=== PATIENT | female | born 1960 | race Caucasian/White ===

== ENCOUNTER 2016-11-02 20:24 | Emergency (ER) | payer MEDICARE, MEDICAID ==
[2016-11-02 20:36] VITALS: BP 132/67
--- NOTE | 2016-11-02 20:37 | ER Document Report ---
ED Medical Screen (RME) - General Stated Complaint: FALL,LEFT KNEE PAIN Notes: mechanical fall from standing, landing on her knee and then her head. Denies LOC , vomiting, confusion, AMS. admits to headache. able to walk but pain in her left lateral knee. states she cannot bend her knee I have greeted and performed a rapid initial assessment of this patient. A comprehensive ED assessment and evaluation of the patient, analysis of test results and completion of the medical decision making process will be conducted by additional ED providers. TRAVEL OUTSIDE OF THE [place] IN LAST 30 DAYS: No - Related Data Allergies/Adverse Reactions: metoclopramide HCl [From Reglan] Adverse Reaction (Intermediate, Verified 20:37) "FEELS LIKE NO CONTROL OVER BODY-LEGS/HANDS/SPEECH" Penicillins Adverse Reaction (Intermediate, Verified 11/02/16 20:37) NAUSEA/VOMITING prochlorperazine edisylate [From Compazine] Adverse Reaction (Intermediate, Verified 11/02/16 20:37) DIZZINESS,AGITATED,RESTLESS sumatriptan [From Imitrex] Adverse Reaction (Verified 11/02/16 20:37) NAUSEA, VOMITING, DIZZY ivp dye Allergy (Severe, Uncoded 08/24/15 10:16) THROAT SWELLING, DIFFICULTY BREATHING Past Medical History - Past Medical History Cardiac Medical History: Denies: Hx Atrial Fibrillation, Hx Congestive Heart Failure, Hx Coronary Artery Disease, Hx Heart Attack, Hx Hypercholesterolemia, Hx Hypertension - HTN in chart but PT states "NO HTN", Hx Peripheral Vascular Disease, Hx Pulmonary Embolism, Hx Heart Murmur Pulmonary Medical History: Reports: Hx Asthma, Hx Bronchitis - 07/31, Hx Pneumonia - x3 IN 2014 Denies: Hx COPD, Hx Respiratory Failure, Hx Sleep Apnea, Hx Tuberculosis Neurological Medical History: Denies: Hx Cerebrovascular Accident, Hx Seizures Endocrine Medical History: Reports: Hx Diabetes Mellitus Type 1, Hx Hypothyroidism - Right Thyroidectomy/CA/Goiter. Denies: Hx Graves' Disease, Hx Hyperthyroidism Renal/ Medical History: Denies: Hx End Stage Renal Disease, Hx Kidney Stones, Hx Ovarian Cysts, Hx Peritoneal Dialysis, Hx Pelvic Inflammatory Disease Malignancy Medical History: Denies: Hx Breast Cancer, Hx Cervical Cancer, Hx Lung Cancer, Hx Ovarian Cancer GI Medical History: Reports: Hx Gastroesophageal Reflux Disease - 7 yrs? takes meds, Hx Irritable Bowel. Denies: Hx Crohn's Disease, Hx Hiatal Hernia, Hx Liver Failure, Hx Ulcer Musculoskeltal Medical History: Reports Hx Arthritis, Reports Hx Fibromyalgia, Denies Hx Multiple Sclerosis, Denies Hx Muscular Dystrophy, Reports Hx Musculoskeletal Deformity, Reports Hx Musculoskeletal Trauma Psychiatric Medical History: Reports: Hx Depression - Anxiety, Hx Post Traumatic Stress Disorder Denies: Hx Bipolar Disorder, Hx Dementia, Hx Schizophrenia Traumatic Medical History: Reports: Hx Fractures - multiple- hip, ankles, left wrist Infectious Medical History: Past Surgical History: Reports: Hx Adenoidectomy, Hx Section - x2, Hx Cholecystectomy, Hx Nose Surgery, Hx Orthopedic Surgery, Hx Thyroid Surgery, Hx Tonsillectomy, Hx Tubal Ligation. Denies: Hx Appendectomy, Hx Bowel Surgery, Hx Colostomy, Hx Coronary Artery Bypass Graft, Hx Gastric Bypass Surgery, Hx Herniorrhaphy, Hx Hysterectomy, Hx Mastectomy, Hx Pacemaker - Immunizations Hx Diphtheria, Pertussis, Tetanus Vaccination: Yes Physical Exam - Vital signs Vitals: Temp Pulse Resp BP Pulse Ox 98.4 F 71 16 132/67 H 98 11/02/16 20:35 11/02/16 20:35 11/02/16 20:35 11/02/16 20:35 11/02/16 20:35 Course - Vital Signs Vital signs: Temp Pulse Resp BP Pulse Ox 98.4 F 71 16 132/67 H 98 11/02/16 20:35 11/02/16 20:35 11/02/16 20:35 11/02/16 20:35 11/02/16 20:35
--- NOTE | 2016-11-02 23:05 | ER Document Report ---
HPI - HPI Pain Level: 5 - REPRODUCTIVE Reproductive: DENIES: : - DERM Skin Color: Normal, Ivor Past Medical History - Social History Smoking Status: Never Smoker Chew tobacco use (# tins/day): No Frequency of alcohol use: Rare Drug Abuse: None Family History: Reviewed & Not Pertinent, Other - Past Medical History Cardiac Medical History: Denies: Hx Atrial Fibrillation, Hx Congestive Heart Failure, Hx Coronary Artery Disease, Hx Heart Attack, Hx Hypercholesterolemia, Hx Hypertension - HTN in chart but PT states "NO HTN", Hx Peripheral Vascular Disease, Hx Pulmonary Embolism, Hx Heart Murmur Pulmonary Medical History: Reports: Hx Asthma, Hx Bronchitis - 07/31, Hx Pneumonia - x3 IN 2014 Denies: Hx COPD, Hx Respiratory Failure, Hx Sleep Apnea, Hx Tuberculosis Neurological Medical History: Denies: Hx Cerebrovascular Accident, Hx Seizures Endocrine Medical History: Reports: Hx Diabetes Mellitus Type 1, Hx Hypothyroidism - Right Thyroidectomy/CA/Goiter. Denies: Hx Graves' Disease, Hx Hyperthyroidism Renal/ Medical History: Denies: Hx End Stage Renal Disease, Hx Kidney Stones, Hx Ovarian Cysts, Hx Peritoneal Dialysis, Hx Pelvic Inflammatory Disease Malignancy Medical History: Denies: Hx Breast Cancer, Hx Cervical Cancer, Hx Lung Cancer, Hx Ovarian Cancer GI Medical History: Reports: Hx Gastroesophageal Reflux Disease - 7 yrs? takes meds, Hx Irritable Bowel. Denies: Hx Crohn's Disease, Hx Hiatal Hernia, Hx Liver Failure, Hx Ulcer Musculoskeltal Medical History: Reports Hx Arthritis, Reports Hx Fibromyalgia, Denies Hx Multiple Sclerosis, Denies Hx Muscular Dystrophy, Reports Hx Musculoskeletal Deformity, Reports Hx Musculoskeletal Trauma Psychiatric Medical History: Reports: Hx Depression - Anxiety, Hx Post Traumatic Stress Disorder Denies: Hx Bipolar Disorder, Hx Dementia, Hx Schizophrenia Traumatic Medical History: Reports: Hx Fractures - multiple- hip, ankles, left wrist Infectious Medical History: Past Surgical History: Reports: Hx Adenoidectomy, Hx Section - x2, Hx Cholecystectomy, Hx Nose Surgery, Hx Orthopedic Surgery, Hx Thyroid Surgery, Hx Tonsillectomy, Hx Tubal Ligation. Denies: Hx Appendectomy, Hx Bowel Surgery, Hx Colostomy, Hx Coronary Artery Bypass Graft, Hx Gastric Bypass Surgery, Hx Herniorrhaphy, Hx Hysterectomy, Hx Mastectomy, Hx Pacemaker - Immunizations Hx Diphtheria, Pertussis, Tetanus Vaccination: Yes Hx Pneumococcal Vaccination: 04/12/16 Vertical Provider Document - INFECTION CONTROL TRAVEL OUTSIDE OF THE [place] IN LAST 30 DAYS: No - RESPIRATORY O2 Sat by Pulse Oximetry: 98 Course - Re-evaluation Re-evalutation: 11/02/16 23:04 first time I went in the room, the pt was in xray, upon return and for hx and physical exam she is not in the room again. Therefore I did not see or talk with the pt. She left without being seen. - Vital Signs Vital signs: Temp Pulse Resp BP Pulse Ox 98.4 F 71 16 132/67 H 98 11/02/16 20:35 11/02/16 20:35 11/02/16 20:35 11/02/16 20:35 11/02/16 20:35 Discharge - Discharge Clinical Impression: fall, knee pain Disposition: ELOPED Additional Instructions: pt eloped after the xray was done. I went into the room while she was in xray and again and she was not in the room. pt eloped
== END 2016-11-02 22:52 | disposition left against medical advice (07) ==
LOC: ER 20:24
DX: M25.562 Pain in left knee (principal)
CPT/HCPCS: 99281

== ENCOUNTER → 2017-02-19 | Outpatient (CLI) | payer MEDICARE, MEDICAID ==
--- NOTE | 2017-02-19 15:15 | RADIOLOGY REPORT (SQ) ---
EXAM DESCRIPTION: VENOUS UNILATERAL LOWER COMPLETED DATE/TIME: 02/19/2017 2:29 pm REASON FOR STUDY: LLE I82.409 I82.409 ACUTE EMBOLISM AND THOMBOS UNSP DEEP VN UNSP LOWER E COMPARISON: 11/16/2014 TECHNIQUE: Dynamic and static ferraro scale and color images acquired of the LEFT leg venous system. Se lected spectral images acquired with additional compression and augmentation maneuvers. The contralat eral common femoral vein and saphenofemoral junction were also imaged. Images stored on PACS. LIMITATIONS: None. FINDINGS: LEFT COMMON FEMORAL: Normal phasicity, compression and augmentation. No visualized echogenic material on g ray scale. No defects on color images. FEMORAL: Normal compression and augmentation. No visualized echogenic material on ferraro scale. No defe cts on color images. POPLITEAL: Normal compression, augmentation. No visualized echogenic material on ferraro scale. No defec ts on color images. CALF VESSELS: Normal compression, augmentation. No visualized echogenic material on ferraro scale. No de fects on color images. GSV and SSV: Normal compression, augmentation. No visualized echogenic material on ferraro scale. No def ects on color images. ANY DEEP VENOUS INSUFFICIENCY: Not evaluated. ANY EVIDENCE OF POPLITEAL CYST: No. OTHER: No other significant finding. RIGHT COMMON FEMORAL VEIN AND SAPHENOFEMORAL JUNCTION: Normal phasicity, compression and augmentation. No visualized echogenic material on ferraro scale. No de fects on color images. IMPRESSION: NO EVIDENCE OF DVT OR SVT IN THE LEFT LEG. TECHNICAL DOCUMENTATION: JOB ID: [id number] [employer]- All Rights Reserved
== END ==
LOC: SP 13:04
PROVIDERS: ATTEND Family Medicine
DX: I82.409 Acute embolism and thrombosis of unspecified deep veins of unspecified lower extremity (principal)
CPT/HCPCS: 93971

== ENCOUNTER → 2017-02-27 | Outpatient (CLI) | payer MEDICARE, MEDICAID ==
--- NOTE | 2017-03-06 08:52 | RADIOLOGY REPORT (SQ) ---
EXAM DESCRIPTION: NM 3 PHASE BONE SCAN COMPLETED DATE/TIME: 02/27/2017 4:53 pm REASON FOR STUDY: PAIN IN LEFT FOOT M79.672 PAIN IN LEFT FOOT COMPARISON: Plain films of the feet dated 03/04/2017 RADIONUCLIDE AND DOSE: 21.6 millicuries Tc99m MDP. The route of agent administration: Intravenous. ADDITIONAL DRUGS AND DOSES: None. TECHNIQUE: Following injection of the radiopharmaceutical, serial blood flow images acquired. Equil ibrium blood pool images then acquired. Routine delayed images at 3 hours acquired of the areas of c linical concern with additional focused images as needed. AREA OF INTEREST: Left foot and left knee LIMITATIONS: None. FINDINGS: VASCULAR FLOW IMAGES: No asymmetry or focal areas of hyperemia. BLOOD POOL IMAGES: No asymmetry or focal areas of soft-tissue hyper-perfusion. BONES: There are multiple focal areas of increase tracer activity in both feet at the level of the an kle articulation bilaterally as well as several of the tarsal articulations in the 1st MTP joint. Th marla areas correlate with degenerative changes on the basis of the plain films. Additional images of the left knee were obtained demonstrating a photopenic area in the left knee with surrounding areas o f increased tracer activity. Plain films demonstrate a total left knee replacement and the possibili ty of loosening should be considered. No other significant bony abnormalities were identified on the plain radiographs. OTHER: No other significant finding. IMPRESSION: Findings consistent with degenerative changes involving both feet as noted above. There is increased activity surrounding a a total left knee replacement and the possibility of loosening s hould be considered. COMMENT: PQRS 3570F: Current bone scan is compared with any available plain radiographs, prior bone scans, and CT/MRI. TECHNICAL DOCUMENTATION: JOB ID: [id number] [employer]- All Rights Reserved
== END ==
LOC: RAD 11:33
PROVIDERS: ATTEND Family Medicine
DX: M79.672 Pain in left foot (principal)
CPT/HCPCS: 78315; A9561; Q9969

== ENCOUNTER → 2017-03-04 | Outpatient (CLI) | payer MEDICARE, MEDICAID ==
--- NOTE | 2017-03-04 19:23 | RADIOLOGY REPORT (SQ) ---
EXAM DESCRIPTION: FOOT BILATERAL 3 VIEWS COMPLETED DATE/TIME: 03/04/2017 3:25 pm REASON FOR STUDY: PAIN IN LEFT FOOT COMPARISON: None. NUMBER OF VIEWS: Three views. TECHNIQUE: AP, lateral and oblique radiographic images acquired of the right and left foot. LIMITATIONS: None. FINDINGS: MINERALIZATION: Osteopenia. BONES: No acute fracture or dislocation. No worrisome bone lesions. Scattered degenerative disease noted in the fore combine to, and midfoot. Small plantar enthesophyte noted bilaterally. JOINTS: No effusions. SOFT TISSUES: No soft tissue swelling. No foreign body. OTHER: No other significant finding. IMPRESSION: Degenerative changes noted throughout both feet. No acute fracture dislocation identifi ed. Osteopenia. Small plantar enthesophytes. TECHNICAL DOCUMENTATION: JOB ID: [id number] [employer] - [employer]- All Rights Reserved
== END ==
LOC: RAD 15:05
PROVIDERS: ATTEND Family Medicine
DX: M79.672 Pain in left foot (principal)

== ENCOUNTER → 2017-03-27 | Outpatient (CLI) | payer MEDICARE, MEDICAID ==
--- NOTE | 2017-03-27 16:11 | RADIOLOGY REPORT (SQ) ---
EXAM DESCRIPTION: CT LT LOWER EXTREMITY WITHOUT COMPLETED DATE/TIME: 03/27/2017 2:55 pm REASON FOR STUDY: PAIN IN LEFT KNEE (M25.562) M25.562 PAIN IN LEFT KNEE COMPARISON: Radiograph 11/02/2016 TECHNIQUE: CT scan of the left knee performed without intravenous or oral contrast. Images reviewed with soft tissue and bone windows. Reconstructed coronal and sagittal MPR images reviewed. All anatoly ges stored on PACS. All CT scanners at this facility use dose modulation, iterative reconstruction, and/or weight based d osing when appropriate to reduce radiation dose to as low as reasonably achievable (ALARA). [facility]: Dose Right [facility]: CareDose [facility]: Dose Right [facility]: Teradose 4D [facility]: [employer] RADIATION DOSE: Up-to-date CT equipment and radiation dose reduction techniques were employed. CTDIv ol: 4.8 mGy. DLP: 154 mGy-cm. mGy. LIMITATIONS: Beam hardening artifact from metal prosthesis. FINDINGS: BONES: A total knee arthroplasty is present. There is no evidence of loosening or infecti on. No femoral or tibial fracture is seen. SOFT TISSUES: No joint effusion is seen. Soft tissues above and below the knee appear normal. OTHER: No other significant finding. IMPRESSION: Left knee arthroplasty with no evidence of loosening or infection, and no evidence of fr acture. Study is limited by artifact from the prosthesis. TECHNICAL DOCUMENTATION: JOB ID: [id number] Quality ID # [id number]: Final reports with documentation of one or more dose reduction techniques (e.g., Au tomated exposure control, adjustment of the mA and/or kV according to patient size, use of iterative reconstruction technique) 2010 [employer]- All Rights Reserved
== END ==
LOC: RAD 14:16
PROVIDERS: ATTEND Family Medicine
DX: M25.562 Pain in left knee (principal)

== ENCOUNTER 2017-04-15 17:00 | Emergency (ER) | payer MEDICARE, MEDICAID ==
--- NOTE | 2017-04-15 18:36 | ER Document Report ---
ED Medical Screen (RME) - General Chief Complaint: Abdominal Pain Stated Complaint: ABDOMINAL PAIN Time Seen by Provider: 04/15/17 18:35 Notes: Patient reports severe epigastric and bilateral upper quadrant pain. She does have a history of gastroparesis. She states she has had some dry heaving and has been unable to tolerate food. TRAVEL OUTSIDE OF THE [place] IN LAST 30 DAYS: No - Related Data Allergies/Adverse Reactions: metoclopramide HCl [From Reglan] Adverse Reaction (Intermediate, Verified 17:40) "FEELS LIKE NO CONTROL OVER BODY-LEGS/HANDS/SPEECH" Penicillins Adverse Reaction (Intermediate, Verified 04/15/17 17:40) NAUSEA/VOMITING prochlorperazine edisylate [From Compazine] Adverse Reaction (Intermediate, Verified 04/15/17 17:40) DIZZINESS,AGITATED,RESTLESS sumatriptan [From Imitrex] Adverse Reaction (Verified 04/15/17 17:40) NAUSEA, VOMITING, DIZZY ivp dye Allergy (Severe, Uncoded 04/15/17 17:40) THROAT SWELLING, DIFFICULTY BREATHING Past Medical History - Past Medical History Cardiac Medical History: Denies: Hx Atrial Fibrillation, Hx Congestive Heart Failure, Hx Coronary Artery Disease, Hx Heart Attack, Hx Hypercholesterolemia, Hx Peripheral Vascular Disease, Hx Pulmonary Embolism, Hx Heart Murmur Comment Only: Hx Hypertension - HTN in chart but PT states "NO HTN" Pulmonary Medical History: Reports: Hx Asthma, Hx Bronchitis - 07/31, Hx Pneumonia - x3 IN 2015 Denies: Hx COPD, Hx Respiratory Failure, Hx Sleep Apnea, Hx Tuberculosis Neurological Medical History: Denies: Hx Cerebrovascular Accident, Hx Seizures Endocrine Medical History: Reports: Hx Diabetes Mellitus Type 1, Hx Hypothyroidism - Right Thyroidectomy/CA/Goiter. Denies: Hx Graves' Disease, Hx Hyperthyroidism Renal/ Medical History: Denies: Hx End Stage Renal Disease, Hx Kidney Stones, Hx Ovarian Cysts, Hx Peritoneal Dialysis, Hx Pelvic Inflammatory Disease Malignancy Medical History: Denies: Hx Breast Cancer, Hx Cervical Cancer, Hx Lung Cancer, Hx Ovarian Cancer GI Medical History: Reports: Hx Gastroesophageal Reflux Disease - 7 yrs? takes meds, Hx Irritable Bowel. Denies: Hx Crohn's Disease, Hx Hiatal Hernia, Hx Liver Failure, Hx Ulcer Musculoskeltal Medical History: Reports Hx Arthritis, Reports Hx Fibromyalgia, Denies Hx Multiple Sclerosis, Denies Hx Muscular Dystrophy, Reports Hx Musculoskeletal Deformity, Reports Hx Musculoskeletal Trauma Psychiatric Medical History: Reports: Hx Depression - Anxiety, Hx Post Traumatic Stress Disorder Denies: Hx Bipolar Disorder, Hx Dementia, Hx Schizophrenia Traumatic Medical History: Reports: Hx Fractures - multiple- hip, ankles, left wrist Infectious Medical History: Past Surgical History: Reports: Hx Adenoidectomy, Hx Section - x2, Hx Cholecystectomy, Hx Nose Surgery, Hx Orthopedic Surgery, Hx Thyroid Surgery, Hx Tonsillectomy, Hx Tubal Ligation. Denies: Hx Appendectomy, Hx Bowel Surgery, Hx Colostomy, Hx Coronary Artery Bypass Graft, Hx Gastric Bypass Surgery, Hx Herniorrhaphy, Hx Hysterectomy, Hx Mastectomy, Hx Pacemaker - Immunizations Hx Diphtheria, Pertussis, Tetanus Vaccination: Yes Physical Exam - Vital signs Vitals: Temp Pulse Resp BP Pulse Ox 98.2 F 72 16 134/62 H 97 04/15/17 17:40 04/15/17 17:40 04/15/17 17:40 04/15/17 17:40 04/15/17 17:40 Course - Vital Signs Vital signs: Temp Pulse Resp BP Pulse Ox 98.2 F 72 16 134/62 H 97 04/15/17 17:40 04/15/17 17:40 04/15/17 17:40 04/15/17 17:40 04/15/17 17:40
[2017-04-15 19:09] LABS: APPEARANCE,URINE SLIGHTLY-CLOUDY; BILIRUBIN,URINE NEGATIVE (NEGATIVE); GLUCOSE, URINE NEGATIVE (NEGATIVE); KETONES,URINE TRACE mg/dL (NEGATIVE); LEUKOCYTE ESTERASE,URINE MODERATE (NEGATIVE); NITRITE,URINE POSITIVE (NEGATIVE); PROTEIN,URINE NEGATIVE (NEGATIVE); URINE SPECIFIC GRAVITY 1.021; UROBILINOGEN,URINE NEGATIVE mg/dL (<2.0)
[2017-04-15 19:20] LABS: ABSOLUTE BASOPHILS # (AUTO) 0.1 10^3/uL (0.0-0.2); ABSOLUTE EOSINOPHILS # (AUTO) 0.1 10^3/uL (0.0-0.6); ABSOLUTE LYMPHOCYTES (AUTO) 2.9 10^3/uL (0.5-4.7); ABSOLUTE MONOCYTES (AUTO) 0.6 10^3/uL (0.1-1.4); ABSOLUTE NEUT (AUTO) 4.1 10^3/uL (1.7-8.2); BASOPHILS % (AUTO) 1.3 % (0-2); EOSINOPHILS % (AUTO) 1.4 % (0-6); HEMATOCRIT 43.4 % (36.0-47.0); HEMOGLOBIN 14.9 g/dL (12.0-15.5); HGB HCT DIFFERENCE 1.3; MEAN CORPUSCULAR HEMOGLOBIN 30.8 pg (27.0-33.4); MEAN CORPUSCULAR HGB CONC 34.3 g/dL (32.0-36.0); MEAN CORPUSCULAR VOLUME 90 fl (80-97); MONOCYTES % (AUTO) 7.5 % (3-13); RED BLOOD COUNT 4.82 10^6/uL (3.72-5.28); RED CELL DISTRIBUTION WIDTH 15.1 % (11.5-14.0); SEGMENTED NEUTROPHILS % (AUTO) 52.8 % (42-78); WHITE BLOOD COUNT 7.8 10^3/uL (4.0-10.5)
--- NOTE | 2017-04-15 20:21 | ER Document Report ---
ED GI/ - General Mode of Arrival: Ambulatory Information source: Patient TRAVEL OUTSIDE OF THE [place] IN LAST 30 DAYS: No - HPI Patient complains to provider of: Vomiting Onset: Other - see narrative Similar symptoms previously: No Recently seen / treated by doctor: No <TODD WHITTAKER - Last Filed: 04/15/17 21:31> <JL MALDONADO - Last Filed: 04/15/17 23:47> - General Chief Complaint: Abdominal Pain Stated Complaint: ABDOMINAL PAIN Time Seen by Provider: 04/15/17 18:35 Notes: Patient is a 57 year old female that presents to the emergency department today with complaints of persistent nausea/vomiting for 8 days. Patient states she has been unable to keep anything down and has lost 8 pounds however she weighs more now than during her previous visit to the ED in October. Patient has a history of gastroparesis. Patient states she is on pain management secondary to a knee surgery in 2015 however after review of patient's records in the [place] database she has been on pain management since before that surgery. ( TODD WHITTAKER) - Related Data Allergies/Adverse Reactions: metoclopramide HCl [From Reglan] Adverse Reaction (Intermediate, Verified 17:40) "FEELS LIKE NO CONTROL OVER BODY-LEGS/HANDS/SPEECH" Penicillins Adverse Reaction (Intermediate, Verified 04/15/17 17:40) NAUSEA/VOMITING prochlorperazine edisylate [From Compazine] Adverse Reaction (Intermediate, Verified 04/15/17 17:40) DIZZINESS,AGITATED,RESTLESS sumatriptan [From Imitrex] Adverse Reaction (Verified 04/15/17 17:40) NAUSEA, VOMITING, DIZZY ivp dye Allergy (Severe, Uncoded 04/15/17 17:40) THROAT SWELLING, DIFFICULTY BREATHING Past Medical History - General Information source: Patient - Social History Smoking Status: Former Smoker Cigarette use (# per day): No Frequency of alcohol use: None Lives with: Family Family History: Reviewed & Not Pertinent, Other Patient has suicidal ideation: No Patient has homicidal ideation: No - Past Medical History Cardiac Medical History: Comment Only: Hx Hypertension - HTN in chart but PT states "NO HTN" Pulmonary Medical History: Reports: Hx Asthma, Hx Bronchitis - 07/31, Hx Pneumonia - x3 IN 2014 Endocrine Medical History: Reports: Hx Diabetes Mellitus Type 1, Hx Hypothyroidism - Right Thyroidectomy/CA/Goiter Malignancy Medical History: GI Medical History: Reports: Hx Gastroesophageal Reflux Disease - 7 yrs? takes meds, Hx Irritable Bowel Musculoskeltal Medical History: Reports Hx Arthritis, Reports Hx Fibromyalgia, Reports Hx Musculoskeletal Deformity, Reports Hx Musculoskeletal Trauma Psychiatric Medical History: Reports: Hx Depression - Anxiety, Hx Post Traumatic Stress Disorder Traumatic Medical History: Reports: Hx Fractures - multiple- hip, ankles, left wrist Infectious Medical History: Past Surgical History: Reports: Hx Adenoidectomy, Hx Section - x2, Hx Cholecystectomy, Hx Nose Surgery, Hx Orthopedic Surgery, Hx Thyroid Surgery, Hx Tonsillectomy, Hx Tubal Ligation - Immunizations Hx Diphtheria, Pertussis, Tetanus Vaccination: Yes Hx Pneumococcal Vaccination: 04/12/16 <TODD WHITTAKER - Last Filed: 04/15/17 21:31> Review of Systems - Review of Systems Constitutional: No symptoms reported EENT: No symptoms reported Cardiovascular: No symptoms reported Respiratory: No symptoms reported Gastrointestinal: See HPI, Abdominal pain, Diarrhea, Nausea, Vomiting Genitourinary: No symptoms reported Female Genitourinary: No symptoms reported Musculoskeletal: No symptoms reported Skin: No symptoms reported Hematologic/Lymphatic: No symptoms reported Neurological/Psychological: No symptoms reported -: Yes All other systems reviewed and negative <TODD WHITTAKER - Last Filed: 04/15/17 21:31> Physical Exam <TODD WHITTAKER - Last Filed: 04/15/17 21:31> <JL MALDONADO - Last Filed: 04/15/17 23:47> - Vital signs Vitals: Temp Pulse Resp BP Pulse Ox 98.2 F 72 16 134/62 H 97 04/15/17 17:40 04/15/17 17:40 04/15/17 17:40 04/15/17 17:40 04/15/17 17:40 - Notes Notes: Physical Exam: General: Alert, holding empty emesis bag at bedside. HEENT: Normocephalic. Atraumatic. PERRL. Extraocular movements intact. Oropharynx clear. Neck: Supple. Non-tender. Respiratory: No respiratory distress. Clear and equal breath sounds bilaterally. Cardiovascular: Regular rate and rhythm. Abdominal: Obese. Slight epigastric tenderness with palpation. No distension. Normal Bowel Sounds. Back: Non-tender. No deformity or step off. Extremities: Moves all four extremities. Upper extremities: Normal inspection. Normal ROM. Lower extremities: Normal inspection. No edema. Normal ROM. Neurological: Normal cognition. AAOx4. Normal speech. Psychological: Normal affect. Normal Mood. Skin: Warm. Dry. Normal color. (TODD WHITTAKER) Course - Laboratory Result Diagrams: 04/15/17 19:05 04/15/17 20:50 <TODD WHITTAKER - Last Filed: 04/15/17 21:31> - Laboratory Result Diagrams: 04/15/17 19:05 04/15/17 20:50 - Diagnostic Test Radiology reviewed: Image reviewed, Reports reviewed - Acute abdominal series shows constipation nothing other porter of concern. - Consults Dr. Mccray Consulted provider: follow-up in office - He recommends if there is no reason for her to be admitted, then she should follow-up with him in the office. <JL MALDONADO - Last Filed: 04/15/17 23:47> - Re-evaluation Re-evalutation: 04/15/17 22:47 The patient claims she has not been able to keep down any food or liquids since Thursday 8 days ago. Her urine has trace ketones. Her BUN is 9 with creatinine 0.73 she regularly takes for Percocet 10 mg tablets on a daily basis and for alprazolam 1 mg tablets on a daily basis. I find it hard to believe she is not keeping those medications down and given her lab work I find it equally hard to believe that she is not keeping any fluids down. When she returned from x-ray they apparently did not tell the nurse, who looked in on the patient over the past hour, so the IV fluids were not connected back to the patient and she has not received any IV fluid. I discovered this when I went to see the patient to review the findings so far. When the nurse went in to connect the fluids, the patient states she did not want them and was going home. When I went in to discuss this with the patient she began crying and pleading her case about what am I going to do. She claims she has not been able to keep any fluids down for over a week I do not believe her. She complains about lying here for 2 hours and not getting any fluid, I explained again why that happened and pointed out that she refused to have the fluids reconnected to the IV catheter that is already in place. I told her that I am unable to make sense of that reasoning. I told her that I would like to get antibiotics in her because of a probable bladder infection. When I ask about her penicillin allergy, she states that it makes her nauseous, which is not an allergy. She continues to cry and sob. All of this behavior is most likely related to her chronic narcotic and benzodiazepine dependency issues. Her friend in attendance is also pleading her case, telling me how she lives alone. This has not seemed to prevent her from staying hydrated for the past week, based on lab work done today. I offered her nausea medicine, she reports she has plenty of medicine at home for nausea. (JL MALDONADO) - Vital Signs Vital signs: Temp Pulse Resp BP Pulse Ox 98.2 F 72 19 129/67 H 92 04/15/17 17:40 04/15/17 17:40 04/15/17 22:01 04/15/17 22:01 04/15/17 22:01 - Laboratory Laboratory results interpreted by me: 04/15/17 04/15/17 04/15/17 18:49 19:05 20:50 RDW 15.1 H Sodium 147.0 H Lipase 15.2 L Urine Ketones TRACE H Urine Blood MODERATE H Urine Nitrite POSITIVE H Ur Leukocyte Esterase MODERATE H Discharge <TODD WHITTAKER - Last Filed: 04/15/17 21:31> <JL MALDONADO - Last Filed: 04/15/17 23:47> - Discharge Clinical Impression: Nausea and vomiting Qualifiers: Vomiting type: unspecified Vomiting Intractability: non-intractable Qualified Code(s): R11.2 - Nausea with vomiting, unspecified Abdominal pain Qualifiers: Abdominal location: upper abdomen, unspecified Qualified Code(s): R10.10 - Upper abdominal pain, unspecified Constipation Qualifiers: Constipation type: unspecified constipation type Qualified Code(s): K59.00 - Constipation, unspecified Condition: Stable Disposition: HOME, SELF-CARE Additional Instructions: You have decided you do not want the IV fluid hydration. Your lab work suggests that you are not dehydrated. You also appear to have a bladder infection and should be on antibiotics until the urine culture comes back. Continue your regular medications at home. Take your nausea medicine for the nauseousness. Drink small sips of cool clear liquids. Follow-up with Dr. Mccray in the office tomorrow for further evaluation of your nausea and vomiting. RETURN TO THE EMERGENCY ROOM IF ANY NEW OR WORSENING SYMPTOMS. Prescriptions: Cephalexin Monohydrate [Keflex 500 mg Capsule] 500 mg PO BID #10 capsule Referrals: EVA MCCRAY MD [Primary Care Provider] - Follow up tomorrow Scribe Attestation: 04/15/17 23:46 I personally performed the services described in the documentation, reviewed and edited the documentation which was dictated to the scribe in my presence, and it accurately records my words and actions. (JL MALDONADO) Scribe Documentation - Scribe Written by Don:: Don Marroquin, 04/15/2017 [id number] acting as scribe for :: Kel <TODD WHITTAKER - Last Filed: 04/15/17 21:31>
[2017-04-15] MEDS ORDERED: ONDANSETRON HCL INJ/PF 4 MG/2 ML SDV IV ONE (20:32)
[2017-04-15] MEDS ORDERED: DIPHENHYDRAMINE HCL 50 MG/ML VIAL IV ONE (20:32)
[2017-04-15] MEDS: NORMAL SALINE 1000 ML 1,000 ML IV PRN ×2 (20:43→23:12)
[2017-04-15 21:28] LABS: ALANINE AMINOTRANSFERASE 24 U/L (9-52); ALBUMIN 4.2 g/dL (3.5-5.0); ALKALINE PHOSPHATASE 46 U/L (38-126); ANION GAP 14 (5-19); ASPARTATE AMINO TRANSFERASE 22 U/L (14-36); BILIRUBIN,DIRECT 0.4 mg/dL (0.0-0.4); BILIRUBIN,TOTAL 0.7 mg/dL (0.2-1.3); BLOOD UREA NITROGEN 9 mg/dL (7-20); CARBON DIOXIDE 26 mmol/L (22-30); CHLORIDE 107 mmol/L (98-107); CREATININE RESULT 0.73 mg/dL (0.52-1.25); GLUCOSE 100 mg/dL (75-110); LIPASE 15.2 U/L (23-300); POTASSIUM 4.1 mmol/L (3.6-5.0); TOTAL PROTEIN 6.9 g/dL (6.3-8.2)
--- NOTE | 2017-04-15 21:38 | RADIOLOGY REPORT (SQ) ---
EXAM DESCRIPTION: ACUTE ABDOMEN SERIES COMPLETED DATE/TIME: 04/15/2017 9:17 pm REASON FOR STUDY: N,V, constipation COMPARISON: None. NUMBER OF VIEWS: Three views. TECHNIQUE: Frontal chest, supine abdomen and upright/decubitus abdomen radiographic images acquired. LIMITATIONS: None. FINDINGS: CHEST: No consolidation. FREE AIR: None. No abnormal gas collections. BOWEL GAS PATTERN: Nonobstructive pattern. No dilated loops or air fluid levels. CONSTIPATION: mild. CALCIFICATIONS: No suspicious calcifications. HARDWARE: None in the abdomen. SOFT TISSUES: No gross mass or suggestion of organomegaly. BONES: No acute fracture. No worrisome bone lesions. OTHER: No other significant finding. IMPRESSION: NO RADIOGRAPHIC EVIDENCE FOR ACUTE ABDOMINAL DISEASE. CONSTIPATION. TECHNICAL DOCUMENTATION: JOB ID: [id number] [employer] All Rights Reserved
[2017-04-15] MEDS ORDERED: CEFTRIAXONE 1 GM/D5W RTU 50 ML IV ONE (22:47)
[2017-04-15] MEDS ORDERED: CEFTRIAXONE RTU 1 GM/D5W 50 ML IV ONE (23:00)
[2017-04-16 00:27] VITALS: BP 120/62
== END 2017-04-16 00:07 | disposition home or self-care (01) ==
LOC: ER 17:00
DX: R11.2 Nausea with vomiting, unspecified (principal); R10.10 Upper abdominal pain, unspecified; K59.00 Constipation, unspecified; E66.9 Obesity, unspecified; K21.9 Gastro-esophageal reflux disease without esophagitis; E03.9 Hypothyroidism, unspecified; Z88.0 Allergy status to penicillin; Z90.49 Acquired absence of other specified parts of digestive tract; Z87.891 Personal history of nicotine dependence; Z98.51 Tubal ligation status
CPT/HCPCS: 99284; 96361; 96375; 96365; 36415; 87086; 83690; 85025; 87088; 80053; 81001; 87186; 74022; J1200; J2405; J7030; J0696

== ENCOUNTER → 2017-04-30 | Outpatient (CLI) | payer MEDICARE, MEDICAID | LOC: LAB 10:42 | PROVIDERS: ATTEND Internal Medicine Geriatric Medicine | DX: R53.83 Other fatigue (principal); R10.13 Epigastric pain | CPT/HCPCS: 36415; 88184; 88185 ==

== ENCOUNTER 2017-05-06 13:18 | Emergency (ER) | payer MEDICARE, MEDICAID ==
[2017-05-06 14:37] LABS: APPEARANCE,URINE CLOUDY; BILIRUBIN,URINE NEGATIVE (NEGATIVE); GLUCOSE, URINE NEGATIVE (NEGATIVE); KETONES,URINE NEGATIVE (NEGATIVE); NITRITE,URINE NEGATIVE (NEGATIVE); PROTEIN,URINE NEGATIVE (NEGATIVE); URINE SPECIFIC GRAVITY 1.013
[2017-05-06 14:38] LABS: LEUKOCYTE ESTERASE,URINE TRACE (NEGATIVE); RBC,URINE RARE /HPF; WBC,URINE NONE SEEN /HPF
--- NOTE | 2017-05-06 15:41 | ER Document Report ---
ED Medical Screen (RME) - General Chief Complaint: Abdominal Pain Stated Complaint: STOMACH PAIN Time Seen by Provider: 05/06/17 15:40 Notes: Patient reports several weeks of generalized weakness and nausea. She also states she has had some bruising on her abdomen. She states she is also had problems with constipation. TRAVEL OUTSIDE OF THE [place] IN LAST 30 DAYS: No - Related Data Allergies/Adverse Reactions: metoclopramide HCl [From Reglan] Adverse Reaction (Intermediate, Verified 13:29) "FEELS LIKE NO CONTROL OVER BODY-LEGS/HANDS/SPEECH" Penicillins Adverse Reaction (Intermediate, Verified 05/06/17 13:29) NAUSEA/VOMITING prochlorperazine edisylate [From Compazine] Adverse Reaction (Intermediate, Verified 05/06/17 13:29) DIZZINESS,AGITATED,RESTLESS sumatriptan [From Imitrex] Adverse Reaction (Verified 05/06/17 13:29) NAUSEA, VOMITING, DIZZY ivp dye Allergy (Severe, Uncoded 05/06/17 13:29) THROAT SWELLING, DIFFICULTY BREATHING Past Medical History - Social History Chew tobacco use (# tins/day): No Frequency of alcohol use: None Drug Abuse: None - Past Medical History Cardiac Medical History: Denies: Hx Atrial Fibrillation, Hx Congestive Heart Failure, Hx Coronary Artery Disease, Hx Heart Attack, Hx Hypercholesterolemia, Hx Peripheral Vascular Disease, Hx Pulmonary Embolism, Hx Heart Murmur Comment Only: Hx Hypertension - HTN in chart but PT states "NO HTN" Pulmonary Medical History: Reports: Hx Asthma, Hx Bronchitis - 07/31, Hx Pneumonia - x3 IN 2014 Denies: Hx COPD, Hx Respiratory Failure, Hx Sleep Apnea, Hx Tuberculosis Neurological Medical History: Denies: Hx Cerebrovascular Accident, Hx Seizures Endocrine Medical History: Reports: Hx Diabetes Mellitus Type 1, Hx Hypothyroidism - Right Thyroidectomy/CA/Goiter. Denies: Hx Graves' Disease, Hx Hyperthyroidism Renal/ Medical History: Denies: Hx End Stage Renal Disease, Hx Kidney Stones, Hx Ovarian Cysts, Hx Peritoneal Dialysis, Hx Pelvic Inflammatory Disease Malignancy Medical History: Denies: Hx Breast Cancer, Hx Cervical Cancer, Hx Lung Cancer, Hx Ovarian Cancer GI Medical History: Reports: Hx Gastroesophageal Reflux Disease - 7 yrs? takes meds, Hx Irritable Bowel. Denies: Hx Crohn's Disease, Hx Hiatal Hernia, Hx Liver Failure, Hx Ulcer Musculoskeltal Medical History: Reports Hx Arthritis, Reports Hx Fibromyalgia, Denies Hx Multiple Sclerosis, Denies Hx Muscular Dystrophy, Reports Hx Musculoskeletal Deformity, Reports Hx Musculoskeletal Trauma Psychiatric Medical History: Reports: Hx Depression - Anxiety, Hx Post Traumatic Stress Disorder Denies: Hx Bipolar Disorder, Hx Dementia, Hx Schizophrenia Traumatic Medical History: Reports: Hx Fractures - multiple- hip, ankles, left wrist Infectious Medical History: Past Surgical History: Reports: Hx Adenoidectomy, Hx Section - x2, Hx Cholecystectomy, Hx Nose Surgery, Hx Orthopedic Surgery, Hx Thyroid Surgery, Hx Tonsillectomy, Hx Tubal Ligation. Denies: Hx Appendectomy, Hx Bowel Surgery, Hx Colostomy, Hx Coronary Artery Bypass Graft, Hx Gastric Bypass Surgery, Hx Herniorrhaphy, Hx Hysterectomy, Hx Mastectomy, Hx Pacemaker - Immunizations Hx Diphtheria, Pertussis, Tetanus Vaccination: Yes Physical Exam - Vital signs Vitals: Temp Pulse Resp BP Pulse Ox 98.3 F 71 16 151/81 H 96 05/06/17 13:29 05/06/17 13:29 05/06/17 13:29 05/06/17 13:29 05/06/17 13:29 Course - Vital Signs Vital signs: Temp Pulse Resp BP Pulse Ox 98.3 F 71 16 151/81 H 96 05/06/17 13:29 05/06/17 13:29 05/06/17 13:29 05/06/17 13:29 05/06/17 13:29 - Laboratory Laboratory results interpreted by me: 05/06/17 13:32 Urine Urobilinogen 2.0 H Ur Leukocyte Esterase TRACE H
[2017-05-06 16:09] LABS: ABSOLUTE EOSINOPHILS # (AUTO) 0.1 10^3/uL (0.0-0.6); ABSOLUTE LYMPHOCYTES (AUTO) 2.6 10^3/uL (0.5-4.7); ABSOLUTE MONOCYTES (AUTO) 0.5 10^3/uL (0.1-1.4); ABSOLUTE NEUT (AUTO) 2.5 10^3/uL (1.7-8.2); BASOPHILS % (AUTO) 0.8 % (0-2); EOSINOPHILS % (AUTO) 1.2 % (0-6); HEMATOCRIT 42.6 % (36.0-47.0); HEMOGLOBIN 14.4 g/dL (12.0-15.5); HGB HCT DIFFERENCE 0.6; LYMPHOCYTES % (AUTO) 44.8 % (13-45); MEAN CORPUSCULAR HEMOGLOBIN 30.2 pg (27.0-33.4); MEAN CORPUSCULAR HGB CONC 33.7 g/dL (32.0-36.0); MEAN CORPUSCULAR VOLUME 90 fl (80-97); MONOCYTES % (AUTO) 8.9 % (3-13); RED BLOOD COUNT 4.76 10^6/uL (3.72-5.28); RED CELL DISTRIBUTION WIDTH 15.3 % (11.5-14.0); SEGMENTED NEUTROPHILS % (AUTO) 44.3 % (42-78); WHITE BLOOD COUNT 5.7 10^3/uL (4.0-10.5)
[2017-05-06 16:34] LABS: ALANINE AMINOTRANSFERASE 21 U/L (9-52); ALBUMIN 4.5 g/dL (3.5-5.0); ALKALINE PHOSPHATASE 58 U/L (38-126); ANION GAP 9 (5-19); ASPARTATE AMINO TRANSFERASE 23 U/L (14-36); BILIRUBIN,DIRECT 0.4 mg/dL (0.0-0.4); BLOOD UREA NITROGEN 9 mg/dL (7-20); CALCIUM 10.2 mg/dL (8.4-10.2); CARBON DIOXIDE 25 mmol/L (22-30); CHLORIDE 111 mmol/L (98-107); CREATININE RESULT 0.62 mg/dL (0.52-1.25); GLUCOSE 105 mg/dL (75-110); POTASSIUM 4.1 mmol/L (3.6-5.0); SODIUM 144.8 mmol/L (137-145); TOTAL PROTEIN 7.4 g/dL (6.3-8.2)
[2017-05-06 16:45] LABS: AMORPHOUS SEDIMENT,URINE 1+ /HPF; APPEARANCE,URINE TURBID; BILIRUBIN,URINE NEGATIVE (NEGATIVE); GLUCOSE, URINE NEGATIVE (NEGATIVE); KETONES,URINE NEGATIVE (NEGATIVE); LEUKOCYTE ESTERASE,URINE NEGATIVE (NEGATIVE); NITRITE,URINE NEGATIVE (NEGATIVE); PROTEIN,URINE NEGATIVE (NEGATIVE); URINE SPECIFIC GRAVITY 1.013
--- NOTE | 2017-05-06 18:38 | ER Document Report ---
ED GI/ - General Chief Complaint: Abdominal Pain Stated Complaint: STOMACH PAIN Time Seen by Provider: 05/06/17 15:40 Notes: Patient says she has been experiencing pain in her abdomen for at least 6 weeks. She has some nausea and generalized abdominal pain. She was seen in this ED on April 15 and diagnosed with a UTI which was treated with antibiotics. She still had the pain and went and saw her primary care provider , Dr. Forte last week. He did lab work which was all normal. Patient has not had any vomiting or diarrhea and, in fact, feels as if she is constipated having very little bowel movement. She says that she is on a lot of painkiller medications. Denies any fever. Incidentally, patient noted that she has some bruises in the region of her umbilicus for the past couple of days. She recalls no unusual activity or injury that would have caused this bruise. TRAVEL OUTSIDE OF THE [place] IN LAST 30 DAYS: No - Related Data Allergies/Adverse Reactions: metoclopramide HCl [From Reglan] Adverse Reaction (Intermediate, Verified 13:29) "FEELS LIKE NO CONTROL OVER BODY-LEGS/HANDS/SPEECH" Penicillins Adverse Reaction (Intermediate, Verified 05/06/17 13:29) NAUSEA/VOMITING prochlorperazine edisylate [From Compazine] Adverse Reaction (Intermediate, Verified 05/06/17 13:29) DIZZINESS,AGITATED,RESTLESS sumatriptan [From Imitrex] Adverse Reaction (Verified 05/06/17 13:29) NAUSEA, VOMITING, DIZZY ivp dye Allergy (Severe, Uncoded 05/06/17 13:29) THROAT SWELLING, DIFFICULTY BREATHING Past Medical History - Social History Smoking Status: Former Smoker Chew tobacco use (# tins/day): No Frequency of alcohol use: None Drug Abuse: None Family History: Reviewed & Not Pertinent, Other - Past Medical History Cardiac Medical History: Comment Only: Hx Hypertension - HTN in chart but PT states "NO HTN" Pulmonary Medical History: Reports: Hx Asthma, Hx Bronchitis - 07/31, Hx Pneumonia - x3 IN 2015 Endocrine Medical History: Reports: Hx Diabetes Mellitus Type 1, Hx Diabetes Mellitus Type 2, Hx Hypothyroidism - Right Thyroidectomy/CA/Goiter Malignancy Medical History: GI Medical History: Reports: Hx Gastroesophageal Reflux Disease - 7 yrs? takes meds, Hx Irritable Bowel Musculoskeltal Medical History: Reports Hx Arthritis, Reports Hx Fibromyalgia, Reports Hx Musculoskeletal Deformity, Reports Hx Musculoskeletal Trauma Psychiatric Medical History: Reports: Hx Depression - Anxiety, Hx Post Traumatic Stress Disorder Traumatic Medical History: Reports: Hx Fractures - multiple- hip, ankles, left wrist Infectious Medical History: Past Surgical History: Reports: Hx Adenoidectomy, Hx Section - x2, Hx Cholecystectomy, Hx Nose Surgery, Hx Orthopedic Surgery - TKR, Hx Thyroid Surgery, Hx Tonsillectomy, Hx Tubal Ligation - Immunizations Hx Diphtheria, Pertussis, Tetanus Vaccination: Yes Hx Pneumococcal Vaccination: 04/12/16 Review of Systems - Review of Systems Notes: REVIEW OF SYSTEMS: CONSTITUTIONAL : Denies fever. EENT: Denies eye, ear, nose or mouth or throat pain or other symptoms. CARDIOVASCULAR: Denies chest pain. RESPIRATORY: Denies cough, chest congestion, or shortness of breath. GASTROINTESTINAL: See HPI. GENITOURINARY: Denies difficulty or painful urinating, urinary frequency, blood in urine. MUSCULOSKELETAL: Denies back or neck pain. Denies joint pain or swelling. SKIN: Denies rash or skin lesions. NEUROLOGICAL: Denies LOC or altered mental status. Denies headache. Denies sensory loss or motor deficits. ALL OTHER SYSTEMS REVIEWED AND NEGATIVE. Physical Exam - Vital signs Vitals: Temp Pulse Resp BP Pulse Ox 98.3 F 71 16 151/81 H 96 05/06/17 13:29 05/06/17 13:29 05/06/17 13:29 05/06/17 13:29 05/06/17 13:29 Interpretation: Normal - Notes Notes: PHYSICAL EXAMINATION: GENERAL: Well-appearing, in no acute distress. Appears to be depressed. HEAD: Atraumatic, normocephalic. NECK: Normal range of motion, supple. LUNGS: Breath sounds clear and equal bilaterally. HEART: Regular rate and rhythm without murmurs. ABDOMEN: Soft, generalized tenderness. No masses felt. No bruits heard. No guarding or rebound. Patient has a small area of bruising at the level of the umbilicus in the midline. It is no more than a couple of inches tall and 2-3 inches wide. Slightly tender. BACK: No tenderness throughout entire back. EXTREMITIES: Normal range of motion without pain. NEUROLOGICAL: Normal speech, normal gait. Normal sensory, motor, and reflex exams. Awake, alert, and oriented x3. Cranial nerves normal. PSYCH: Normal mood, normal affect. Appears depressed. When I advised her that I cannot find anything abnormal, much like her private doctor last week, she seemed very unhappy and close to being in tears. SKIN: Warm, dry, no rashes. Course - Vital Signs Vital signs: Temp Pulse Resp BP Pulse Ox 98.3 F 70 16 147/72 H 97 05/06/17 13:29 05/06/17 18:48 05/06/17 18:48 05/06/17 18:48 05/06/17 18:48 - Laboratory Result Diagrams: 05/06/17 15:47 05/06/17 15:47 Laboratory results interpreted by me: 05/06/17 05/06/17 05/06/17 13:32 15:47 15:47 RDW 15.3 H Chloride 111 H Urine Urobilinogen 2.0 H Ur Leukocyte Esterase TRACE H 05/06/17 16:15 RDW Chloride Urine Urobilinogen 2.0 H Ur Leukocyte Esterase Discharge - Discharge Clinical Impression: Abdominal pain, Constipation, Superficial bruising of abdominal wall Condition: Stable Disposition: HOME, SELF-CARE Additional Instructions: ABDOMINAL PAIN: There are many causes of abdominal pain. Pain can mean a serious problem requiring surgery (such as appendicitis). It can also be an innocent problem that goes away on its own (such as a viral infection). Often, time must pass to determine the cause of pain. The physician does not feel that hospitalization is necessary, at present. Things may change within the next 24 hours. Call the doctor or come back for re- examination if any problems occur, such as: (1) Pain that becomes more severe, steady, or becomes concentrated in one specific area. Also, pain that is more severe with movement or coughing. (2) Vomiting that persists or becomes more frequent. (3) Blood in the vomitus, urine, or bowel movements. Blood in the stool may have a tarry or black appearance. (4) Shaking chills or fever greater than 100 degrees F. (5) The abdomen becomes more distended or swollen. (6) Bowel movements cease. (7) Failure to improve as expected. NORMAL EXAM AND WORKUP: At this time, your examination and workup show no significant abnormality. No significant abnormal physical findings are noted. All laboratory, EKG, and imaging (x-ray, CT scans, ultrasound) studies that were ordered show no significant abnormality. Although your examination and all studies that were ordered showed no significant abnormal finding, there are no examinations and no studies that are 100% accurate. There is always the possibility that some abnormality could exist and not be detected with physical examination or within the limits and capabilities of laboratory and other studies. You should return or follow up as you were instructed on your visit today for further evaluation if your symptoms do not resolve. CONSTIPATION: Constipation is a common problem. It is especially likely as you get older. Constipation is a common cause of abdominal pain, but sometimes causes no symptoms at all. Causes of constipation include certain medications, dehydration, diets, inactivity, and low-fiber intake. Rarely, it can be a symptom of underlying disease. The physician has evaluated you for this. Avoid constipation by eating a diet high in fiber, fruits, and vegetables. Drink plenty of liquids. Get regular exercise. If possible, avoid constipating medicines like narcotic pain medication. Some vitamin tablets can cause constipation. Stool softeners may be needed for difficult cases. An excellent stool softener is Konsyl which is available at [employer], and [employer]. Just add a teaspoon to a glass of pineapple or orange juice daily or twice a day if needed. Laxatives are useful for occasional constipation. You should use them only when necessary. Too-frequent use can make your bowels dependent on them. Some over the counter laxatives available without prescription are: Milk of Magnesia, 1-2 tablespoons twice a day Dulcolax, 5 mg pill or 10 mg suppository. Citrate of Magnesia, 4-5 ounces a day for a day or two For acute constipation, Fleet's Enemas and Dulcolax suppositories are helpful. Chronic, correction use of laxatives or enemas is not a good idea. Your bowel may become dependant on them. You do not need to have a bowel movement every day. Many people do fine with a bowel movement every three or four days. You should call your doctor or return for re-evaluation if you pass blood in the stool, or if you develop fever or increasing abdominal pain. BULK LAXATIVES: Bulk laxatives make the stool softer and bulkier. They're useful for preventing constipation. You can choose between psyllium, methylcellulose, and polycarbophil. They are available without a prescription. Psyllium brand names include Konsyl, Metamucil, Perdiem, Effer-Syllium and Hydrocil. It's available as powder, flavored drink powder, or chewable. The usual dose of psyllium powder is one heaping teaspoon in water each morning, increasing to twice a day if needed. [place] juice can disguise the slightly grainy texture. Methylcellulose is marketed as Citrucel and other brands. The average dose is two grams in a cup of water one to three times a day. Polycarbophil is marketed as Fiber-Con. Take two tablets with a cup of water one to three times a day. LAXATIVE: A laxative agent has been prescribed for your condition. This should result in passage of stool within 12 hours. Some mild intestinal cramping is common as the hard stool begins to move. You may have loose or runny stools for a short time. Contact your doctor if there is severe cramping, vomiting, or passage of blood. Return for further care if this medicine fails to improve your condition. FOLLOW-UP CARE: If you have been referred to a physician for follow-up care, call the physician s office for an appointment as you were instructed or within the next two days. If you experience worsening or a significant change in your symptoms, notify the physician immediately or return to the Emergency Department at any time for re-evaluation. Follow-up with your primary care provider, Dr. Forte, in the next couple of weeks for him to reassess and determine if you need further testing performed.
[2017-05-06 18:50] VITALS: BP 147/72
== END 2017-05-06 18:48 | disposition home or self-care (01) ==
LOC: ER 13:18
DX: S30.1XXA Contusion of abdominal wall, initial encounter (principal); R10.84 Generalized abdominal pain; K59.00 Constipation, unspecified; R11.0 Nausea; X58.XXXA Exposure to other specified factors, initial encounter
CPT/HCPCS: 36415; 80053; 81001; 85025; 99283

== ENCOUNTER → 2017-08-11 | Outpatient (CLI) | payer MEDICARE, MEDICAID ==
[2017-08-11 10:34] LABS: THYROID STIMULATING HORMONE 2.03 uIU/mL (0.47-4.68)
[2017-08-12 07:16] LABS: THYROGLOBULIN AB <1.0 IU/mL (0.0-0.9)
[2017-08-12 12:43] LABS: ADRENOCORTICOTROPIC HORMONE 9.5 pg/mL (7.2-63.3)
== END ==
LOC: OD 08:23
PROVIDERS: ATTEND Internal Medicine Endocrinology, Diabetes & Metabolism
DX: C73 Malignant neoplasm of thyroid gland (principal); E55.9 Vitamin D deficiency, unspecified; R63.4 Abnormal weight loss
CPT/HCPCS: 36415; 82024; 82306; 82533; 84439; 84443; 86800

== ENCOUNTER 2017-09-22 10:27 | Emergency (ER) | payer MEDICARE, MEDICAID ==
[2017-09-22 10:35] VITALS: BP 146/74
--- NOTE | 2017-09-22 11:06 | ER Document Report ---
ED Skin Rash/Insect Bite/Abscs - General Chief Complaint: Rash Stated Complaint: SKIN PROBLEM Time Seen by Provider: 09/22/17 10:46 Notes: 57-year-old female to the emergency department for evaluation of possible scabies. Patient states that she was exposed to scabies by a friend that was diagnosed with it recently. States that she has been itching on her back, chest and neck area. No lesions on the skin. No fever, chills, sweats. Denies any other major symptoms. TRAVEL OUTSIDE OF THE [place] IN LAST 30 DAYS: No - HPI Patient complains to provider of: Skin rash/lesion Onset: Yesterday Onset/Duration: Waxing and waning Quality of pain: No pain Severity: Mild Pain Level: 0 Skin Temperature: Warm - Related Data Allergies/Adverse Reactions: metoclopramide HCl [From Reglan] Adverse Reaction (Intermediate, Verified 10:28) "FEELS LIKE NO CONTROL OVER BODY-LEGS/HANDS/SPEECH" Penicillins Adverse Reaction (Intermediate, Verified 09/22/17 10:28) NAUSEA/VOMITING prochlorperazine edisylate [From Compazine] Adverse Reaction (Intermediate, Verified 09/22/17 10:28) DIZZINESS,AGITATED,RESTLESS sumatriptan [From Imitrex] Adverse Reaction (Verified 09/22/17 10:28) NAUSEA, VOMITING, DIZZY ivp dye Allergy (Severe, Uncoded 09/22/17 10:28) THROAT SWELLING, DIFFICULTY BREATHING Past Medical History - General Information source: Patient - Social History Smoking Status: Never Smoker Chew tobacco use (# tins/day): No Frequency of alcohol use: None Drug Abuse: None Lives with: Family Family History: Reviewed & Not Pertinent, Other Patient has suicidal ideation: No Patient has homicidal ideation: No - Past Medical History Cardiac Medical History: Denies: Hx Atrial Fibrillation, Hx Congestive Heart Failure, Hx Coronary Artery Disease, Hx Heart Attack, Hx Hypercholesterolemia, Hx Peripheral Vascular Disease, Hx Pulmonary Embolism, Hx Heart Murmur Comment Only: Hx Hypertension - HTN in chart but PT states "NO HTN" Pulmonary Medical History: Reports: Hx Asthma, Hx Bronchitis - 07/31, Hx Pneumonia - x3 IN 2015 Denies: Hx COPD, Hx Respiratory Failure, Hx Sleep Apnea, Hx Tuberculosis Neurological Medical History: Denies: Hx Cerebrovascular Accident, Hx Seizures Endocrine Medical History: Reports: Hx Diabetes Mellitus Type 1, Hx Diabetes Mellitus Type 2, Hx Hypothyroidism - Right Thyroidectomy/CA/Goiter. Denies: Hx Graves' Disease, Hx Hyperthyroidism Renal/ Medical History: Denies: Hx End Stage Renal Disease, Hx Kidney Stones, Hx Ovarian Cysts, Hx Peritoneal Dialysis, Hx Pelvic Inflammatory Disease Malignancy Medical History: Denies: Hx Breast Cancer, Hx Cervical Cancer, Hx Lung Cancer, Hx Ovarian Cancer GI Medical History: Reports: Hx Gastroesophageal Reflux Disease - 7 yrs? takes meds, Hx Irritable Bowel. Denies: Hx Crohn's Disease, Hx Hiatal Hernia, Hx Liver Failure, Hx Pancreatitis, Hx Ulcer Musculoskeltal Medical History: Reports Hx Arthritis, Reports Hx Fibromyalgia, Denies Hx Multiple Sclerosis, Denies Hx Muscular Dystrophy, Reports Hx Musculoskeletal Deformity, Reports Hx Musculoskeletal Trauma Psychiatric Medical History: Reports: Hx Depression - Anxiety, Hx Post Traumatic Stress Disorder Denies: Hx Bipolar Disorder, Hx Dementia, Hx Schizophrenia Traumatic Medical History: Reports: Hx Fractures - multiple- hip, ankles, left wrist Infectious Medical History: Past Surgical History: Reports: Hx Adenoidectomy, Hx Section - x2, Hx Cholecystectomy, Hx Nose Surgery, Hx Orthopedic Surgery - TKR, right hip elham and plate, Hx Thyroid Surgery - removed half of thyroid, Hx Tonsillectomy, Hx Tubal Ligation. Denies: Hx Appendectomy, Hx Bowel Surgery, Hx Colostomy, Hx Coronary Artery Bypass Graft, Hx Gastric Bypass Surgery, Hx Herniorrhaphy, Hx Hysterectomy, Hx Mastectomy, Hx Pacemaker - Immunizations Hx Diphtheria, Pertussis, Tetanus Vaccination: Yes Hx Pneumococcal Vaccination: 04/12/16 Review of Systems - Review of Systems Constitutional: denies: Fever, Malaise, Weakness EENT: denies: Eye discharge, Blurred vision, Difficulty swallowing, Throat swelling Cardiovascular: denies: Chest pain, Palpitations, Heart racing Respiratory: denies: Cough, Hurts to breathe, Wheezing Musculoskeletal: denies: Back pain, Gout, Joint pain Skin: See HPI, Lesions, Rash. denies: Lumps Physical Exam - Vital signs Vitals: Temp Pulse Resp BP Pulse Ox 98.5 F 80 16 146/74 H 99 09/22/17 10:33 09/22/17 10:33 09/22/17 10:33 09/22/17 10:33 09/22/17 10:33 Interpretation: Normal - General General appearance: Appears well, Alert - HEENT Head: Normocephalic, Atraumatic Eyes: Normal Pupils: PERRL - Cardiovascular Murmur: No - Extremities General upper extremity: Normal inspection, Nontender, Normal color, Normal ROM , Normal temperature General lower extremity: Normal inspection, Nontender, Normal color, Normal ROM , Normal temperature, Normal weight bearing. No: Iván's sign - Neurological Neuro grossly intact: Yes Cognition: Normal Orientation: AAOx4 [place] Coma Scale Eye Opening: Spontaneous [place] Coma Scale Verbal: Oriented [place] Coma Scale Motor: Obeys Commands [place] Coma Scale Total: 15 Speech: Normal - Psychological Associated symptoms: Normal affect, Normal mood - Skin Skin Temperature: Warm Skin Moisture: Dry Skin Color: Normal, Other - No obvious encrusted lesions noted. No obvious lesions on the hands or feet. Course - Re-evaluation Re-evalutation: 09/22/17 11:28 Time will give patient the option of treating. Unlikely this is represents some dry skin. I do not see any telltale signs of scabies but based on her concerns will write her prescription for some permethrin 5% cream as well as some Vistaril. Will discharge at this time. - Vital Signs Vital signs: Temp Pulse Resp BP Pulse Ox 98.5 F 80 16 146/74 H 99 09/22/17 10:33 09/22/17 10:33 09/22/17 10:33 09/22/17 10:33 09/22/17 10:33 Discharge - Discharge Clinical Impression: Rash and nonspecific skin eruption Condition: Good Disposition: HOME, SELF-CARE Instructions: Scabies (OM) Prescriptions: Hydroxyzine Pamoate [Vistaril 25 mg Capsule] 25 mg PO BID PRN 15 Days #30 capsule PRN Reason: Itching Permethrin 60 gm TP ONCE PRN 1 Days #2 cream..g. PRN Reason:
== END 2017-09-22 11:10 | disposition home or self-care (01) ==
LOC: ER 10:27
DX: R21 Rash and other nonspecific skin eruption (principal); L29.9 Pruritus, unspecified; Z20.7 Contact with and (suspected) exposure to pediculosis, acariasis and other infestations; J45.909 Unspecified asthma, uncomplicated; E11.9 Type 2 diabetes mellitus without complications; Z91.041 Radiographic dye allergy status
CPT/HCPCS: 99282

== ENCOUNTER → 2017-10-06 | Outpatient (CLI) | payer MEDICARE, MEDICAID ==
[2017-10-06 18:14] LABS: FREE T4 (FREE THYROXINE) 1.25 ng/dL (0.78-2.19)
[2017-10-06 18:28] LABS: THYROID STIMULATING HORMONE 0.65 uIU/mL (0.47-4.68)
== END ==
LOC: OD 17:10
PROVIDERS: ATTEND Internal Medicine Endocrinology, Diabetes & Metabolism
DX: E89.0 Postprocedural hypothyroidism (principal)
CPT/HCPCS: 36415; 84439; 84443

== ENCOUNTER → 2017-11-24 | Outpatient (CLI) | payer MEDICARE, MEDICAID ==
--- NOTE | 2017-11-24 17:10 | WOMENS IMAGING REPORT ---
EXAM DESCRIPTION: 3D DX MAMMO BILAT; U/S BREAST UNILAT LIMITED COMPLETED DATE/TIME: 11/24/2017 12:54 pm; 11/24/2017 1:56 pm REASON FOR STUDY: BILATERAL DIAGNOSTIC,N64.4; LEFT BREAST PAIN; N64.4 N64.4 MASTODYNIA COMPARISON: Multiple mammograms since 2010 TECHNIQUE: Standard craniocaudal and mediolateral oblique views of each breast recorded using digita l acquisition and breast tomosynthesis. Additional left breast cone compression MLO and CC mammograms, left breast ultrasound, left axilla ul trasound LIMITATIONS: None. FINDINGS: RIGHT BREAST MASSES: None CALCIFICATIONS: No new or suspicious calcifications. ARCHITECTURAL DISTORTION: None. DEVELOPING DENSITY: None. ASYMMETRY: None noted. OTHER: No other significant findings. LEFT BREAST MASSES: In the left retro areolar region, a well-circumscribed mass with lobular contour is present. This measures about 3 cm in greatest length. Review of prior mammograms demonstrate this finding ba ck to 2010, this most likely represents a fibroadenoma. Papilloma is possible. This correlates with a well-circumscribed hypoechoic solid nodule with good acoustic through transmission on ultrasound, 3 x 1 cm in size. CALCIFICATIONS: No new or suspicious calcifications. ARCHITECTURAL DISTORTION: None. DEVELOPING DENSITY: None. ASYMMETRY: None noted. OTHER: No other significant finding. Read with the assistance of CAD: .[facility] - R2 [employer] Version 1.3 .[facility] Imaging - R2 Cenova Version 1.3 .[facility] Imaging - R2 Cenova Version 2.4 .[facility] - R2 Cenova Version 2.4 .[facility] - R2 [employer] Version 9.2 Left breast and axilla ultrasound: Patient indicates a palpable abnormality in the left breast retroareolar 6 o'clock position. . This correlates with a well-circumscribed hypoechoic solid nodule 3 x 1 cm in size. This has good acoust ic through transmission. This most likely represents a fibroadenoma. This is stable mammographicall y dating back to 2010. Also in the left retroareolar region, a 7 mm hypoechoic well-circumscribed nodule is present without internal color flow. This could represent a 2nd, smaller fibroadenoma or small papilloma. Ultrasound of the left axilla demonstrates normal lymph nodes without cortical thickening or altered morphology. IMPRESSION: No mammographic evidence for malignancy right breast. Palpable abnormality left breast correlates with a benign-appearing fibroadenoma, stable mammographic ally since 2010. Incidental finding of a smaller retroareolar solid nodule left breast 7 mm in size for which six-month follow-up ultrasound is recommended. (BI-RADS 3 Probably benign finding. Initial short-interval follow-up suggested). BREAST DENSITY: b. There are scattered areas of fibroglandular density. BIRAD: 3 Probably benign finding. Initial short-interval follow-up suggested, with left breast six-m onth follow-up ultrasound. RECOMMENDATION: RECOMMENDED FOLLOW UP: Left breast six-month follow-up ultrasound SPECIFIC INTERVENTION/IMAGING/CONSULTATION RECOMMENDED:Left breast six-month follow-up ultrasound COMMUNICATION:Patient notified by letter COMMENT: The patient has been notified of the results by letter per MQSA requirements. Additional no tification policies are in place for contacting patient with suspicious or incomplete findings. Quality ID #225: The [employer] recommends an annual screening mammogram for women aged 40 years or over. This facility utilizes a reminder system to ensure that all patients receive reminder letters, and/or direct phone calls for appointments. This includes reminders for routine scr eening mammograms, diagnostic mammograms, or other Breast Imaging Interventions when appropriate. Th is patient will be placed in the appropriate reminder system. The [employer] (ACR) has developed recommendations for screening MRI of the breast s in certain patient populations, to be used in conjunction with mammography. Breast MRI surveillanc e may be appropriate for women with more than 20% lifetime risk of developing breast cancer as deter mined by genetic testing, significant family history of the disease, or history of mantle radiation f or Hodgkins Disease. ACR Practice Guidelines 2008. DBT Technology DBT is a type of tomographic mammography. With conventional mammography, overlapping breast tissue ma y make lesions difficult to detect, even with good compression. DBT uses an x-ray tube that rotates a round the breast, taking images at different angles. These images are then combined to create thin sl ices of the breast that the radiologist can view as a 3D reconstruction. The [employer] unit can perform full-field digital mammograms (2D imaging); or DBT (3D imaging); or both, in a combination mode that quickly performs both the mammogram and the tomosynthesis scan while the breast is still compressed. PQRS 6045F: Fluoroscopic imaging is not utilized for breast tomosynthesis. TECHNICAL DOCUMENTATION: FINDING NUMBER: (1) ASSESSMENT: (1) JOB ID: [id number] [employer]- All Rights Reserved Reading location - IP/workstation name: [email or web address]
== END ==
LOC: WI 12:39
PROVIDERS: ATTEND Family Medicine
DX: Z12.31 Encounter for screening mammogram for malignant neoplasm of breast (principal); N64.4 Mastodynia
CPT/HCPCS: 76642; 77066; G0279; 77062

== ENCOUNTER 2018-03-06 20:42 | Emergency (ER) | payer MEDICARE, MEDICAID ==
[2018-03-06 21:06] VITALS: BP 159/71
--- NOTE | 2018-03-06 22:13 | RADIOLOGY REPORT (SQ) ---
EXAM DESCRIPTION: RIBS LEFT W/PA CHEST COMPLETED DATE/TIME: 03/06/2018 9:21 pm REASON FOR STUDY: fall with rib pain . Pain anterior and posterior at the level of the 4th through 8th ribs. COMPARISON: Chest x-ray 07/02/2016. TECHNIQUE: Frontal view of the chest and additional views of the left ribs acquired. NUMBER OF VIEWS: Three view. LIMITATIONS: None. FINDINGS: FRONTAL CXR: No pneumothorax. No pleural effusion. No atelectasis or infiltrates. RIBS: Minimally displaced acute fractures at the lateral left 3rd and 4th ribs. IMPRESSION: Minimally displaced acute fractures at the lateral left 3rd and 4th ribs. No pneumothor ax . COMMENT: SITE OF TRAUMA/COMPLAINT MARKED/STAMP COMPLETED: NO. TECHNICAL DOCUMENTATION: JOB ID: [id number] [employer]- All Rights Reserved Reading location - IP/workstation name: [email or web address]
--- NOTE | 2018-03-06 22:38 | ER Document Report ---
HPI - HPI Patient complains to provider of: fall with rib Pain Onset: Last week Onset/Duration: Persistent Quality of pain: Sharp Severity: Severe Pain Level: 5 Exacerbated by: Coughing, Deep breathing Relieved by: Denies Similar symptoms previously: Yes Recently seen / treated by doctor: Yes - ROS ROS below otherwise negative: Yes - CONSTITUTIONAL Constitutional: DENIES: Fever, Chills - EENT EENT: DENIES: Sore Throat, Ear Pain, Nasal Drainage-Clear, Nasal Drainage- Purulent, Congestion, Eye problems - NEURO Neurology: DENIES: Headache, Weakness, Vision blurred, Dizzinesss / Vertigo - CARDIOVASCULAR Cardiovascular: REPORTS: Chest pain - left - GASTROINTESTINAL Gastrointestinal: DENIES: Abdominal Pain, Nausea, Patient vomiting, Diarrhea, Constipation, Black / Bloody Stools - URINARY Urinary: DENIES: Dysuria, Urgency, Frequency - REPRODUCTIVE Reproductive: DENIES: :, Postmenopausal, Abnormal bleeding / discharge - MUSCULOSKELETAL Musculoskeletal: DENIES: Extremity pain, Back Pain, Neck Pain, Swelling - DERM Skin Color: Normal Skin Problems: None Past Medical History - General Information source: Patient - Social History Smoking Status: Never Smoker Cigarette use (# per day): No Chew tobacco use (# tins/day): No Smoking Education Provided: No Frequency of alcohol use: None Drug Abuse: None Lives with: Alone Family History: Reviewed & Not Pertinent, Other Patient has suicidal ideation: No Patient has homicidal ideation: No - Past Medical History Cardiac Medical History: Reports: None Comment Only: Hx Hypertension - HTN in chart but PT states "NO HTN" Pulmonary Medical History: Reports: Hx Asthma, Hx Bronchitis - 07/31, Hx Pneumonia - x3 IN 2014 EENT Medical History: Reports: None Neurological Medical History: Reports: None Endocrine Medical History: Reports: Hx Diabetes Mellitus Type 2, Hx Hypothyroidism - Right Thyroidectomy/CA/Goiter Renal/ Medical History: Reports: None Malignancy Medical History: Reports: Other - thyroid GI Medical History: Reports: Hx Gastroesophageal Reflux Disease - 7 yrs? takes meds, Hx Irritable Bowel, Other - Gastroparesis Musculoskeletal Medical History: Reports Hx Arthritis, Reports Hx Fibromyalgia, Reports Hx Musculoskeletal Deformity, Reports Hx Musculoskeletal Trauma Skin Medical History: Reports None Psychiatric Medical History: Reports: Hx Depression - Anxiety, Hx Post Traumatic Stress Disorder Traumatic Medical History: Reports: Hx Fractures - multiple- hip, ankles, left wrist Infectious Medical History: Reports: None Past Surgical History: Reports: Hx Adenoidectomy, Hx Section - x2, Hx Cholecystectomy, Hx Nose Surgery, Hx Orthopedic Surgery - TKR, right hip elham and plate, Hx Thyroid Surgery - removed half of thyroid, Hx Tonsillectomy, Hx Tubal Ligation - Immunizations Hx Diphtheria, Pertussis, Tetanus Vaccination: Yes Hx Pneumococcal Vaccination: 04/12/16 Vertical Provider Document - CONSTITUTIONAL Agree With Documented VS: Yes Exam Limitations: No Limitations General Appearance: WD/WN, Mild Distress - INFECTION CONTROL TRAVEL OUTSIDE OF THE [place] IN LAST 30 DAYS: No - HEENT HEENT: Atraumatic, Normal ENT Exam, Normocephalic, PERRLA - NECK Neck: Normal Inspection - RESPIRATORY Respiratory: Breath Sounds Normal, No Respiratory Distress, Other - Left chest tenderness - CARDIOVASCULAR Cardiovascular: Regular Rate, Regular Rhythm - GI/ABDOMEN Gastrointestinal: Abdomen Soft, Abdomen Non-Tender, No Organomegaly, Normal Bowel Sounds - MUSCULOSKELETAL/EXTREMETIES Musculoskeletal/Extremeties: MAEW, FROM, Tender Course - Re-evaluation Re-evalutation: 03/06/18 22:44 Chest x-rays with patient and written report of x-rays given to patient to follow-up with her pain management and her primary doctor on Thursday. Patient was instructed to take her current pain management medications. Patient was instructed on use of incentive spirometry and to use ice packs for discomfort. - Vital Signs Vital signs: Temp Pulse Resp BP Pulse Ox 98.2 F 63 16 159/71 H 99 03/06/18 21:03 03/06/18 21:03 03/06/18 21:03 03/06/18 21:03 03/06/18 21:03 - Diagnostic Test Radiology reviewed: Image reviewed, Reports reviewed Discharge - Discharge Clinical Impression: rib fracture 3 and 4 left Condition: Stable Disposition: HOME, SELF-CARE Additional Instructions: Rib Injuries and Fractures You have been diagnosed as having either bruised or broken ribs. These two injuries are treated in the same way. It will usually take four to six weeks for these injured ribs to heal. Sometimes, rib belts or anesthetic injections of the chest wall help reduce the pain. If you are using a rib belt, you should cough or take a deep breath at least every hour or two to prevent lung complications. You should not engage in any strenuous physical activity until released by your physician. The usual rule is "if it hurts, don't do it." Rib fractures can lead to serious lung complications including lung collapse, hemorrhage, and pneumonia. You should call the physician or return at once if any of the following occur: (1) Fever or chills. (2) Persistent cough, coughing up blood, or shortness of breath. (3) Increasing pain. (4) Weakness, lightheadedness, or fainting. Continue your current pain management medications. Use the incentive spirometry as demonstrated Follow-up with your pain management doctor on Thursday as suggested by telephone and schedule a follow-up appointment for your increase in pain. FOLLOW-UP CARE: If you have been referred to a physician for follow-up care, call the physician s office for an appointment as you were instructed or within the next two days. If you experience worsening or a significant change in your symptoms, notify the physician immediately or return to the Emergency Department at any time for re-evaluation. Referrals: LEYDI WELLINGTON MD [Primary Care Provider] - Follow up as needed
== END 2018-03-06 23:00 | disposition home or self-care (01) ==
LOC: ER 20:42
DX: S22.42XA Multiple fractures of ribs, left side, initial encounter for closed fracture (principal); R07.81 Pleurodynia; W19.XXXA Unspecified fall, initial encounter; E11.9 Type 2 diabetes mellitus without complications; E03.9 Hypothyroidism, unspecified; Z90.49 Acquired absence of other specified parts of digestive tract; Z96.659 Presence of unspecified artificial knee joint
CPT/HCPCS: 99283

== ENCOUNTER 2018-03-18 17:13 | Emergency (ER) | payer MEDICARE, MEDICAID ==
[2018-03-18] MEDS ORDERED: IBUPROFEN 800 MG TABLET PO ONE (17:34)
--- NOTE | 2018-03-18 17:35 | ER Document Report ---
ED Medical Screen (RME) - General Chief Complaint: Rib Pain Stated Complaint: FALL/RIB PAIN Time Seen by Provider: 03/18/18 17:33 Mode of Arrival: Wheelchair Information source: Patient TRAVEL OUTSIDE OF THE [place] IN LAST 30 DAYS: No - HPI Patient complains to provider of: fall Onset: Just prior to arrival - pt. fell earlier this afternoon with c/o L-sided rib pain. No other injuries - Related Data Allergies/Adverse Reactions: metoclopramide HCl [From Reglan] Adverse Reaction (Intermediate, Verified 17:14) "FEELS LIKE NO CONTROL OVER BODY-LEGS/HANDS/SPEECH" Penicillins Adverse Reaction (Intermediate, Verified 03/18/18 17:14) NAUSEA/VOMITING prochlorperazine edisylate [From Compazine] Adverse Reaction (Intermediate, Verified 03/18/18 17:14) DIZZINESS,AGITATED,RESTLESS sumatriptan [From Imitrex] Adverse Reaction (Verified 03/18/18 17:14) NAUSEA, VOMITING, DIZZY ivp dye Allergy (Severe, Uncoded 09/22/17 10:28) THROAT SWELLING, DIFFICULTY BREATHING Past Medical History - Social History Chew tobacco use (# tins/day): No Frequency of alcohol use: None Drug Abuse: None - Past Medical History Cardiac Medical History: Comment Only: Hx Hypertension - HTN in chart but PT states "NO HTN" Pulmonary Medical History: Reports: Hx Asthma, Hx Bronchitis - 07/31, Hx Pneumonia - x3 IN 2015 Endocrine Medical History: Reports: Hx Diabetes Mellitus Type 2, Hx Hypothyroidism - Right Thyroidectomy/CA/Goiter Renal/ Medical History: Denies: Hx Peritoneal Dialysis Malignancy Medical History: GI Medical History: Reports: Hx Gastroesophageal Reflux Disease - 7 yrs? takes meds gastroparesis, Hx Irritable Bowel Musculoskeltal Medical History: Reports Hx Arthritis, Reports Hx Fibromyalgia, Reports Hx Musculoskeletal Deformity, Reports Hx Musculoskeletal Trauma Psychiatric Medical History: Reports: Hx Depression - Anxiety, Hx Post Traumatic Stress Disorder Traumatic Medical History: Reports: Hx Fractures - multiple- hip, ankles, left wrist Infectious Medical History: Past Surgical History: Reports: Hx Adenoidectomy, Hx Section - x2, Hx Cholecystectomy, Hx Nose Surgery, Hx Orthopedic Surgery - TKR, right hip elham and plate, Hx Thyroid Surgery - removed half of thyroid, Hx Tonsillectomy, Hx Tubal Ligation - Immunizations Hx Diphtheria, Pertussis, Tetanus Vaccination: Yes Physical Exam - Vital signs Vitals: Temp Pulse Resp BP Pulse Ox 98.8 F 67 16 145/78 H 100 03/18/18 17:19 03/18/18 17:19 03/18/18 17:19 03/18/18 17:19 03/18/18 17:19 Course - Vital Signs Vital signs: Temp Pulse Resp BP Pulse Ox 98.8 F 67 16 145/78 H 100 03/18/18 17:19 03/18/18 17:19 03/18/18 17:19 03/18/18 17:19 03/18/18 17:19 Doctor's Discharge - Discharge Referrals: LEYDI WELLINGTON MD [Primary Care Provider] - Follow up as needed
--- NOTE | 2018-03-18 18:05 | RADIOLOGY REPORT (SQ) ---
EXAM DESCRIPTION: RIBS LEFT W/PA CHEST COMPLETED DATE/TIME: 03/18/2018 5:50 pm REASON FOR STUDY: fall COMPARISON: None. TECHNIQUE: Frontal view of the chest and additional views of the left ribs acquired. NUMBER OF VIEWS: Three views LIMITATIONS: None. FINDINGS: FRONTAL CXR: No pneumothorax. No pleural effusion. No atelectasis or infiltrates. RIBS: No displaced rib fractures. No lytic or blastic bony lesions. OTHER: No other significant finding. IMPRESSION: NO PNEUMOTHORAX. NO DISPLACED RIB FRACTURES. COMMENT: SITE OF TRAUMA/COMPLAINT MARKED/STAMP COMPLETED: Yes TECHNICAL DOCUMENTATION: JOB ID: [id number] [employer]- All Rights Reserved Reading location - IP/workstation name: [email or web address]
[2018-03-18 18:48] VITALS: BP 154/68
--- NOTE | 2018-04-14 17:05 | ER Document Report ---
ED General - General Chief Complaint: Rib Pain Stated Complaint: FALL/RIB PAIN Time Seen by Provider: 03/18/18 17:33 Mode of Arrival: Wheelchair Information source: Patient TRAVEL OUTSIDE OF THE [place] IN LAST 30 DAYS: No - HPI Onset: Just prior to arrival - pt states she fell earlier today and has L-sided rib pain. No LOC, no neck pain - Related Data Allergies/Adverse Reactions: metoclopramide HCl [From Reglan] Adverse Reaction (Intermediate, Verified 17:14) "FEELS LIKE NO CONTROL OVER BODY-LEGS/HANDS/SPEECH" Penicillins Adverse Reaction (Intermediate, Verified 03/18/18 17:14) NAUSEA/VOMITING prochlorperazine edisylate [From Compazine] Adverse Reaction (Intermediate, Verified 03/18/18 17:14) DIZZINESS,AGITATED,RESTLESS sumatriptan [From Imitrex] Adverse Reaction (Verified 03/18/18 17:14) NAUSEA, VOMITING, DIZZY ivp dye Allergy (Severe, Uncoded 09/22/17 10:28) THROAT SWELLING, DIFFICULTY BREATHING Past Medical History - General Information source: Patient - Social History Smoking Status: Never Smoker Chew tobacco use (# tins/day): No Frequency of alcohol use: None Drug Abuse: None Family History: Reviewed & Not Pertinent, Other Patient has suicidal ideation: No Patient has homicidal ideation: No - Past Medical History Cardiac Medical History: Comment Only: Hx Hypertension - HTN in chart but PT states "NO HTN" Pulmonary Medical History: Reports: Hx Asthma, Hx Bronchitis - 07/31, Hx Pneumonia - x3 IN 2014 Endocrine Medical History: Reports: Hx Diabetes Mellitus Type 2, Hx Hypothyroidism - Right Thyroidectomy/CA/Goiter Renal/ Medical History: Denies: Hx Peritoneal Dialysis Malignancy Medical History: GI Medical History: Reports: Hx Gastroesophageal Reflux Disease - 7 yrs? takes meds gastroparesis, Hx Irritable Bowel Musculoskeletal Medical History: Reports Hx Arthritis, Reports Hx Fibromyalgia, Reports Hx Musculoskeletal Deformity, Reports Hx Musculoskeletal Trauma Psychiatric Medical History: Reports: Hx Depression - Anxiety, Hx Post Traumatic Stress Disorder Traumatic Medical History: Reports: Hx Fractures - multiple- hip, ankles, left wrist Infectious Medical History: Past Surgical History: Reports: Hx Adenoidectomy, Hx Section - x2, Hx Cholecystectomy, Hx Nose Surgery, Hx Orthopedic Surgery - TKR, right hip elham and plate, Hx Thyroid Surgery - removed half of thyroid, Hx Tonsillectomy, Hx Tubal Ligation - Immunizations Hx Diphtheria, Pertussis, Tetanus Vaccination: Yes Hx Pneumococcal Vaccination: 04/12/16 Review of Systems - Review of Systems Constitutional: No symptoms reported EENT: No symptoms reported Cardiovascular: No symptoms reported Respiratory: No symptoms reported Gastrointestinal: No symptoms reported Musculoskeletal: See HPI, Other - L-sided rib alex -: Yes All other systems reviewed and negative Physical Exam - Vital signs Vitals: Temp Pulse Resp BP Pulse Ox 98.8 F 67 16 145/78 H 100 03/18/18 17:19 03/18/18 17:19 03/18/18 17:19 03/18/18 17:19 03/18/18 17:19 - General General appearance: Appears well In distress: None - HEENT Head: Normocephalic Lids everted for exam: right: Foreign body Pharynx: Normal Neck: Normal - Respiratory Respiratory status: No respiratory distress Chest status: Tender - There is L-sided anterior chest wall and rib tenderness at 5-7 - Cardiovascular Rhythm: Regular Heart sounds: Normal auscultation - Abdominal Inspection: Normal Tenderness: Nontender Course - Vital Signs Vital signs: Temp Pulse Resp BP Pulse Ox 98.6 F 52 L 18 154/68 H 99 03/18/18 18:47 03/18/18 18:47 03/18/18 18:47 03/18/18 18:47 03/18/18 18:47 Discharge - Discharge Clinical Impression: Contusion of rib on left side Qualifiers: Encounter type: initial encounter Qualified Code(s): S20.212A - Contusion of left front wall of thorax, initial encounter Condition: Stable Disposition: HOME, SELF-CARE Additional Instructions: rest, continue current meds , return if worse Referrals: LEYDI WELLINGTON MD [Primary Care Provider] - Follow up as needed
== END 2018-03-18 18:49 | disposition home or self-care (01) ==
LOC: ER 17:13
DX: S20.212A Contusion of left front wall of thorax, initial encounter (principal); R07.81 Pleurodynia; J45.909 Unspecified asthma, uncomplicated; E11.9 Type 2 diabetes mellitus without complications
CPT/HCPCS: 99283; 71101; A9270

== ENCOUNTER → 2018-08-02 | Outpatient (CLI) | payer MEDICARE, MEDICAID ==
--- NOTE | 2018-08-03 10:02 | WOMENS IMAGING REPORT ---
EXAM DESCRIPTION: U/S BREAST UNILAT LIMITED COMPLETED DATE/TIME: 08/02/2018 2:17 pm REASON FOR STUDY: R92.8 OTHER ABNORMAL AND INCONCLUSIVE FINDINGS ON DIAGNOSTIC IMAGING OF SIVAKUMAR R92.8 OTH ABN AND INCONCLUSIVE FINDINGS ON DX IMAGING OF S[place]AKUM[place] COMPARISON: Multiple studies dating back to 2010 TECHNIQUE: Real-time and static grayscale imaging performed of the left breast targeted to the area of mammographic concern. Selected color Doppler images recorded. LIMITATIONS: None. FINDINGS: MASS: In the left retroareolar region, a 3 x 1 cm hypoechoic solid nodule is present with good acoustic through transmission. No internal color flow. This most likely represents a fibroaden rodrigue and is similar compared to prior exams. In the left retroareolar region, a 2nd, 7 mm solid nodule is present, well-circumscribed without inte rnal color flow. This also likely represents a small fibroadenoma or papilloma. This is similar com pared to ultrasound exam 11/24/2017. OTHER: No other significant finding. IMPRESSION: Probably benign fibroadenoma and papilloma in the left retro areolar region. Recommend follow-up ultrasound of the left retroareolar region during the next bilateral mammogram/tomosynthesi s exam in November 2018. BIRAD: 3 Probably benign finding. Initial short-interval follow-up suggested. RECOMMENDATION: RECOMMENDED FOLLOW-UP: Recommend follow-up ultrasound left retroareolar region, at t he next bilateral mammogram/tomosynthesis exam in November 2018 COMMENT: The [employer] (ACR) has developed recommendations for screening MRI of the breasts in certain patient populations, to be used in conjunction with mammography. Breast MRI s urveillance may be appropriate for women with more than 20% lifetime risk of developing breast cancer as determined by genetic testing, significant family history of the disease, or history of mantle r adiation for Hodgkins Disease. ACR Practice Guidelines 2008. TECHNICAL DOCUMENTATION: JOB ID: [id number] [employer]- All Rights Reserved Reading location - IP/workstation name: [email or web address]
== END ==
LOC: WI 14:25
PROVIDERS: ATTEND Family Medicine
DX: R92.8 Other abnormal and inconclusive findings on diagnostic imaging of breast (principal)
CPT/HCPCS: 76642

== ENCOUNTER → 2018-12-17 | Outpatient (CLI) | payer MEDICARE, MEDICAID ==
--- NOTE | 2018-12-20 16:53 | WOMENS IMAGING REPORT ---
EXAM DESCRIPTION: 3D SCREENING MAMMO BILAT COMPLETED DATE/TIME: 12/20/2018 2:25 pm REASON FOR STUDY: Z12.31 ROUTINE 3D BILATERAL SCREENING Z12.31 ENCNTR SCREEN MAMMOGRAM FOR MALIGNAN T NEOPLASM OF S[place]UMAR COMPARISON: Multiple since 2014 TECHNIQUE: Standard craniocaudal and mediolateral oblique views of each breast recorded using digita l acquisition and breast tomosynthesis. LIMITATIONS: None. FINDINGS: Findings present which are benign by mammographic criteria. No suspicious masses, calcific ations or architectural distortion. Pertinent benign findings: Benign bilateral breast and skin calcifications. Benign retroareolar left breast nodule. Read with the assistance of CAD. .[facility] - R2 Test Desk Trouble Locator Version 9.2 Benign mammographic findings may include one or more of the following: Smooth masses, popcorn/rim/coa rse calcifications, asymmetries, post-procedure changes, and lesions with long-standing stability. IMPRESSION: BENIGN MAMMOGRAPHIC FINDINGS. BIRADS 2 BREAST DENSITY: c. The breasts are heterogeneously dense, which may obscure small masses. BIRAD: 2 BENIGN FINDING(S) RECOMMENDATION: ROUTINE SCREENING COMMENT: The patient has been notified of the results by letter per [place] requirements. Additional no tification policies are in place for contacting patient with suspicious or incomplete findings. Quality ID #[id number]: The [employer] recommends an annual screening mammogram for women aged 40 years or over. This facility utilizes a reminder system to ensure that all patients receive reminder letters, and/or direct phone calls for appointments. This includes reminders for routine scr eening mammograms, diagnostic mammograms, or other Breast Imaging Interventions when appropriate. Th is patient will be placed in the appropriate reminder system. TECHNICAL DOCUMENTATION: FINDING NUMBER: (1) ASSESSMENT: (1) JOB ID: [id number] [employer]- All Rights Reserved Reading location - IP/workstation name: [email or web address]
== END ==
LOC: WI 14:22
PROVIDERS: ATTEND Family Medicine
DX: Z12.31 Encounter for screening mammogram for malignant neoplasm of breast (principal)
CPT/HCPCS: 77063; 77067

== ENCOUNTER 2019-06-21 15:18 | Emergency (ER) | payer MEDICARE, MEDICAID ==
--- NOTE | 2019-06-21 15:28 | ER Document Report ---
ED Medical Screen (RME) - General Chief Complaint: Abdominal Pain Stated Complaint: LEFT ABDOMINAL PAIN Time Seen by Provider: 06/21/19 15:23 Primary Care Provider: LEYDI WELLINGTON MD [Primary Care Provider] - Follow up as needed Mode of Arrival: Ambulatory Information source: Patient Notes: 59-year-old female presents to ED for complaint of pain to the left lower abdomen last 3 days. She states that her scar has cracked open a little bit on the left side. There is a small opening at the site of her scar. Her last child was born 33 years ago. He states the pain is been for about a week and a half. She states she has pain to stand to sit and her abdomen feels to her like it is swollen. She states she has had diarrhea for the last 3 days. States she has been nauseated for the last for 5 days. Not had any temperatures over 100. States she had diverticulitis about 10 years ago and was in the hospital. She said she had a bad female infection 2 to 3 months ago and she does not know if the pain is coming from her pelvic area and her her ovaries or her bowels. I have greeted and performed a rapid initial assessment of this patient. A comprehensive ED assessment and evaluation of the patient, analysis of test results and completion of medical decision making process will be conducted by an additional ED providers. TRAVEL OUTSIDE OF THE [place] IN LAST 30 DAYS: No - Related Data Allergies/Adverse Reactions: metoclopramide HCl [From Reglan] Adverse Reaction (Intermediate, Verified 03/18/18 17:14) "FEELS LIKE NO CONTROL OVER BODY-LEGS/HANDS/SPEECH" Penicillins Adverse Reaction (Intermediate, Verified 03/18/18 17:14) NAUSEA/VOMITING prochlorperazine edisylate [From Compazine] Adverse Reaction (Intermediate, Verified 03/18/18 17:14) DIZZINESS,AGITATED,RESTLESS sumatriptan [From Imitrex] Adverse Reaction (Verified 03/18/18 17:14) NAUSEA, VOMITING, DIZZY ivp dye Allergy (Severe, Uncoded 09/22/17 10:28) THROAT SWELLING, DIFFICULTY BREATHING Past Medical History - Past Medical History Cardiac Medical History: Comment Only: Hx Hypertension - HTN in chart but PT states "NO HTN" Pulmonary Medical History: Reports: Hx Asthma, Hx Bronchitis - 07/31, Hx Pneumonia - x3 IN 2015 Neurological Medical History: Denies: Hx Parkinson's Disease Endocrine Medical History: Reports: Hx Diabetes Mellitus Type 2, Hx Hypothyroidism - Right Thyroidectomy/CA/Goiter Renal/ Medical History: Denies: Hx Peritoneal Dialysis Malignancy Medical History: GI Medical History: Reports: Hx Gastroesophageal Reflux Disease - 7 yrs? takes meds gastroparesis, Hx Irritable Bowel Musculoskeltal Medical History: Reports Hx Arthritis, Reports Hx Fibromyalgia, Reports Hx Musculoskeletal Deformity, Reports Hx Musculoskeletal Trauma, Denies Hx Systemic Lupus Erythematosus Psychiatric Medical History: Reports: Hx Depression - Anxiety, Hx Post Traumatic Stress Disorder Traumatic Medical History: Reports: Hx Fractures - multiple- hip, ankles, left wrist Infectious Medical History: Past Surgical History: Reports: Hx Adenoidectomy, Hx Section - x2, Hx Cholecystectomy, Hx Nose Surgery, Hx Orthopedic Surgery - TKR, right hip elham and plate, Hx Thyroid Surgery - removed half of thyroid, Hx Tonsillectomy, Hx Tubal Ligation - Immunizations Hx Diphtheria, Pertussis, Tetanus Vaccination: Yes Doctor's Discharge - Discharge Referrals: LEYDI WELLINGTON MD [Primary Care Provider] - Follow up as needed
[2019-06-21 15:54] LABS: ABSOLUTE EOSINOPHILS # (AUTO) 0.1 10^3/uL (0.0-0.6); ABSOLUTE NEUT (AUTO) 2.6 10^3/uL (1.7-8.2); BASOPHILS % (AUTO) 0.7 % (0-2); HEMOGLOBIN 14.5 g/dL (12.0-15.5); RED CELL DISTRIBUTION WIDTH 13.7 % (11.5-14.0); TOTAL CELLS COUNTED % (AUTO) 100 %
[2019-06-21 15:59] LABS: ABSOLUTE LYMPHOCYTES (AUTO) 2.3 10^3/uL (0.5-4.7); ABSOLUTE MONOCYTES (AUTO) 0.3 10^3/uL (0.1-1.4); EOSINOPHILS % (AUTO) 1.9 % (0-6); HEMATOCRIT 43.6 % (36.0-47.0); LYMPHOCYTES % (AUTO) 42.3 % (13-45); MEAN CORPUSCULAR HEMOGLOBIN 31.2 pg (27.0-33.4); MEAN CORPUSCULAR HGB CONC 33.4 g/dL (32.0-36.0); MEAN CORPUSCULAR VOLUME 94 fl (80-97); MONOCYTES % (AUTO) 6.5 % (3-13); PLATELET COUNT 206 10^3/uL (150-450); RED BLOOD COUNT 4.66 10^6/uL (3.72-5.28); SEGMENTED NEUTROPHILS % (AUTO) 48.6 % (42-78); WHITE BLOOD COUNT 5.4 10^3/uL (4.0-10.5)
[2019-06-21 16:15] LABS: ALBUMIN 4.5 g/dL (3.5-5.0); ALKALINE PHOSPHATASE 40 U/L (38-126); ANION GAP 13 (5-19); ASPARTATE AMINO TRANSFERASE 20 U/L (14-36); BILIRUBIN,DIRECT 0.1 mg/dL (0.0-0.4); BILIRUBIN,TOTAL 0.7 mg/dL (0.2-1.3); BLOOD UREA NITROGEN 11 mg/dL (7-20); CALCIUM 9.7 mg/dL (8.4-10.2); CARBON DIOXIDE 24 mmol/L (22-30); CHLORIDE 110 mmol/L (98-107); GLUCOSE 96 mg/dL (75-110); POTASSIUM 3.7 mmol/L (3.6-5.0); TOTAL PROTEIN 7.7 g/dL (6.3-8.2)
[2019-06-21 17:13] LABS: APPEARANCE,URINE SLIGHTLY-CLOUDY; BILIRUBIN,URINE NEGATIVE (NEGATIVE); COLOR,URINE YELLOW; GLUCOSE, URINE NEGATIVE (NEGATIVE); KETONES,URINE NEGATIVE (NEGATIVE); PROTEIN,URINE NEGATIVE (NEGATIVE); URINE SPECIFIC GRAVITY 1.019; UROBILINOGEN,URINE NEGATIVE mg/dL (<2.0)
--- NOTE | 2019-06-21 17:13 | ER Document Report ---
ED GI/ - General Chief Complaint: Abdominal Pain Stated Complaint: LEFT ABDOMINAL PAIN Time Seen by Provider: 06/21/19 15:23 Primary Care Provider: LEYDI WELLINGTON MD [Primary Care Provider] - Follow up as needed Mode of Arrival: Ambulatory Notes: 59-year-old female with history of diverticulitis presents the emergency department with chief complaint of left lower quadrant abdominal pain x 1.5 weeks. Patient states she has had diarrhea for the past 3 days with no blood in her stool. Patient also complains of nausea for the last several days. Patient denies any fevers. Denies any shortness of breath or chest pain. Denies generalized abdominal pain as it is localized to the left lower quadrant. No abnormal vaginal discharge. No other complaints patient has a scar r emotely from 33 years ago that appears to have dehisced. Patient states she has a bandage over this approximately 1 cm wide. TRAVEL OUTSIDE OF THE [place] IN LAST 30 DAYS: No - Related Data Allergies/Adverse Reactions: metoclopramide HCl [From Reglan] Adverse Reaction (Intermediate, Verified 03/18/18 17:14) "FEELS LIKE NO CONTROL OVER BODY-LEGS/HANDS/SPEECH" Penicillins Adverse Reaction (Intermediate, Verified 03/18/18 17:14) NAUSEA/VOMITING prochlorperazine edisylate [From Compazine] Adverse Reaction (Intermediate, Verified 03/18/18 17:14) DIZZINESS,AGITATED,RESTLESS sumatriptan [From Imitrex] Adverse Reaction (Verified 03/18/18 17:14) NAUSEA, VOMITING, DIZZY ivp dye Allergy (Severe, Uncoded 09/22/17 10:28) THROAT SWELLING, DIFFICULTY BREATHING Past Medical History - General Information source: Patient - Social History Smoking Status: Never Smoker Frequency of alcohol use: None Drug Abuse: None Family History: Reviewed & Not Pertinent, Other Patient has suicidal ideation: No Patient has homicidal ideation: No - Past Medical History Cardiac Medical History: Comment Only: Hx Hypertension - HTN in chart but PT states "NO HTN" Pulmonary Medical History: Reports: Hx Asthma, Hx Bronchitis - 07/31, Hx Pneumonia - x3 IN 2014 Neurological Medical History: Denies: Hx Parkinson's Disease Endocrine Medical History: Reports: Hx Diabetes Mellitus Type 2, Hx Hypothyroidism - Right Thyroidectomy/CA/Goiter Renal/ Medical History: Denies: Hx Peritoneal Dialysis Malignancy Medical History: GI Medical History: Reports: Hx Gastroesophageal Reflux Disease - 7 yrs? takes meds gastroparesis, Hx Irritable Bowel Musculoskeletal Medical History: Reports Hx Arthritis, Reports Hx Fibromyalgia, Reports Hx Musculoskeletal Deformity, Reports Hx Musculoskeletal Trauma, Denies Hx Systemic Lupus Erythematosus Psychiatric Medical History: Reports: Hx Depression - Anxiety, Hx Post Traumatic Stress Disorder Traumatic Medical History: Reports: Hx Fractures - multiple- hip, ankles, left wrist Infectious Medical History: Past Surgical History: Reports: Hx Adenoidectomy, Hx Section - x2, Hx Cholecystectomy, Hx Nose Surgery, Hx Orthopedic Surgery - TKR, right hip elham and plate, Hx Thyroid Surgery - removed half of thyroid, Hx Tonsillectomy, Hx Tubal Ligation - Immunizations Hx Diphtheria, Pertussis, Tetanus Vaccination: Yes Hx Pneumococcal Vaccination: 04/12/16 Review of Systems - Review of Systems Constitutional: See HPI EENT: No symptoms reported Cardiovascular: See HPI Respiratory: See HPI Gastrointestinal: See HPI Genitourinary: See HPI Female Genitourinary: See HPI Musculoskeletal: No symptoms reported Skin: See HPI Hematologic/Lymphatic: No symptoms reported Neurological/Psychological: No symptoms reported Physical Exam - Notes Notes: PHYSICAL EXAMINATION: Reviewed vital signs and charting by RN GENERAL: Alert, interacts well. No acute distress. HEAD: Normocephalic, atraumatic. EYES: Pupils equal and round. Extraocular movements intact. ENT: Oral mucosa moist, tongue midline. NECK: Full range of motion. Trachea midline. LUNGS: Clear to auscultation bilaterally, no wheezes, rales, or rhonchi. No respiratory distress. HEART: Regular rate and rhythm. No murmur ABDOMEN: soft, left lower quadrant tenderness to palpation. No distention. Bowel sounds present EXTREMITIES: Moves all 4 extremities spontaneously. No edema, No cyanosis. PSYCH: Normal affect, normal mood. SKIN: Warm, dry, normal turgor. Small 1 cm linear area of dehisced skin over h er scar Course - Re-evaluation Re-evalutation: 06/21/19 21:17 Well-appearing in mild distress. Patient with left lower quadrant abdominal pain. Lab work overall unremarkable. Afebrile. Vital signs within normal limits. CT abdomen/pelvis done without IV contrast due to known contrast allergy did not show any evidence of diverticulitis or any inflammatory process. An ultrasound was done which did not yield a lot of information due to patient's body habitus and bowel gas. There was a long delay in disposition of the patient due to inability to transmit imaging to the radiologist remotely. Patient is on pain management and I am going to give her Percocet 5-325 x 2 here and I am going to treat her for a skin soft tissue infection and put her on Keflex for 7 days. I implored her to follow-up with her primary doctor in the next 24 hours. Patient has been given strict return precautions. Stable for discharge - Laboratory Result Diagrams: 06/21/19 15:44 06/21/19 15:44 Laboratory results interpreted by me: 06/21/19 06/21/19 15:44 16:56 Sodium 146.5 H Chloride 110 H Lipase 19.7 L Urine Blood LARGE H Leukocyte Esterase Rfl TRACE H Discharge - Discharge Clinical Impression: Left lower quadrant abdominal pain Dehiscence of closure of skin Qualifiers: Encounter type: initial encounter Qualified Code(s): T81.31XA - Disruption of external operation (surgical) wound, not elsewhere classified, initial encounter Condition: Good Disposition: HOME, SELF-CARE Additional Instructions: You have been seen in the Emergency Department (ED) for abdominal pain. Your evaluation did not identify a clear cause of your symptoms but was generally reassuring. I am going to place you on Keflex for a skin and soft tissue infection. Please take the medication 4 times a day for 5 days. Also, please follow-up with your primary doctor in the next 24 hours regarding today's visit. I encourage you to get a repeat abdominal exam and reassess that wound. Return to the ED if your abdominal pain worsens or fails to improve, you develop bloody vomiting, bloody diarrhea, you are unable to tolerate fluids due to vomiting, fever greater than 101, or other symptoms that concern you. Referrals: LEYDI WELLINGTON MD [Primary Care Provider] - Follow up as needed
--- NOTE | 2019-06-21 17:22 | RADIOLOGY REPORT (SQ) ---
EXAM DESCRIPTION: CT ABD/PELVIS NO ORAL OR IV COMPLETED DATE/TIME: 06/21/2019 4:45 pm REASON FOR STUDY: LLQ pain, IV contrast allergy, hx diverticulitis COMPARISON: CT abdomen pelvis 11/14/2015, 06/06/2009 TECHNIQUE: CT scan of the abdomen and pelvis performed without intravenous or oral contrast. Images reviewed with lung, soft tissue, and bone windows. Reconstructed coronal and sagittal MPR images revi ewed. All images stored on PACS. All CT scanners at this facility use dose modulation, iterative reconstruction, and/or weight based d osing when appropriate to reduce radiation dose to as low as reasonably achievable (ALARA). [facility]: Dose Right [facility]: CareDose [facility]: Dose Right [facility]: Teradose 4D [facility]: Smart Technologies RADIATION DOSE: CT Rad equipment meets quality standard of care and radiation dose reduction techniq ues were employed. CTDIvol: 15.6 mGy. DLP: 822 mGy-cm.mGy. LIMITATIONS: None. FINDINGS: LOWER CHEST: No significant findings. No nodules or infiltrates. NON-CONTRASTED LIVER, SPLEEN, ADRENALS: Evaluation limited by lack of IV contrast. No identified sign ificant masses. PANCREAS: No peripancreatic inflammatory changes. A 2.5 cm fluid density structure is present in the periampullary pancreatic soft tissues, likely 8 periampullary duodenum diverticulum. This is unchan ged from studies dating back to 2008 GALLBLADDER: Surgically absent. RIGHT KIDNEY AND URETER: No suspicious masses. Assessment limited by lack of IV contrast. No signif icant calcifications. No hydronephrosis or hydroureter. LEFT KIDNEY AND URETER: No suspicious masses. Assessment limited by lack of IV contrast. No signifi cant calcifications. No hydronephrosis or hydroureter. AORTA AND RETROPERITONEUM: No aneurysm. No retroperitoneal masses or adenopathy. BOWEL AND PERITONEAL CAVITY: No obvious masses or inflammatory changes. No free fluid. Few descendin g and sigmoid colon diverticuli without CT signs of acute diverticulitis APPENDIX: Normal. PELVIS, BLADDER, AND ABDOMINAL WALL:No abnormal masses. No free fluid. Bladder normal. Normal size f emale pelvic organs. BONES: No significant findings. OTHER: No other significant finding. IMPRESSION: NO ACUTE PROCESS IN THE ABDOMEN OR PELVIS. COMMENT: Quality ID # [id number]: Final reports with documentation of one or more dose reduction techniques (e.g., Automated exposure control, adjustment of the mA and/or kV according to patient size, use of iterative reconstruction technique) TECHNICAL DOCUMENTATION: JOB ID: [id number] [employer]- All Rights Reserved Reading location - IP/workstation name: [email or web address]
--- NOTE | 2019-06-21 21:00 | RADIOLOGY REPORT (SQ) ---
US PELVIS EXAM DATE: 06/21/2019 3:29 PM [employer] PROFESSOR HISTORY: Left-sided pelvic pain. COMPARISON: None. TECHNIQUE: Grayscale, color Doppler, and spectral Doppler ultrasound images of the pelvis were obtained. FINDINGS: The uterus and ovaries are poorly visualized due to body habitus, patient's pain threshold, and overlying bowel gas. The cervix measures 2.1 cm in length. No adnexal masses or free fluid is seen. IMPRESSION: Limited study as above. Unremarkable adnexa.
[2019-06-21] MEDS ORDERED: OXYCODONE-ACETAMINOPHEN 5-325 MG TABLET PO ONE (21:15)
[2019-06-21] MEDS ORDERED: CEPHALEXIN 500 MG CAPSULE PO ONE (21:25)
[2019-06-21 21:43] VITALS: BP 156/71
== END 2019-06-21 21:43 | disposition home or self-care (01) ==
LOC: ER 15:18
DX: T81.31XA Disruption of external operation (surgical) wound, not elsewhere classified, initial encounter (principal); R10.32 Left lower quadrant pain; R19.7 Diarrhea, unspecified; R11.0 Nausea; I10 Essential (primary) hypertension; J45.909 Unspecified asthma, uncomplicated; E11.9 Type 2 diabetes mellitus without complications
CPT/HCPCS: 99284; 36415; 87086; 83690; 85025; 87088; 80053; 81001; 76830; 93976; 74176; A9270 ×2

== ENCOUNTER 2019-07-23 13:15 | Emergency (ER) | payer MEDICARE, MEDICAID ==
--- NOTE | 2019-07-23 13:30 | ER Document Report ---
ED General - General Chief Complaint: Fall Injury Stated Complaint: FALL/WRIST PAIN Time Seen by Provider: 07/23/19 13:20 Primary Care Provider: LEYDI WELLINGTON MD [Primary Care Provider] - Follow up as needed TRAVEL OUTSIDE OF THE [place] IN LAST 30 DAYS: No - HPI Notes: Patient is a 59-year-old female with history of hypertension, diabetes, previous orthopedic surgeries who presents complaining of left hand and wrist pain status post FOOSH injury prior to arrival. Patient states that she was pushing a metal carts when she tripped and fell to the ground landing on her hand in an outstretched position. Patient states that she did hit her cheek off of the metal bar in front of her, but did not have any loss of conscious. Patient states that she does not have any other headache. She has been able to ambulate since then without difficulty. Patient states that she only has pain to her wrist-hand area. She did receive fentanyl by EMS. They did not notice any deformity at the time. Denies any headache, fever, head injury, neck pain, changes in vision/speech/mentation/hearing, URI, sore throat, chest pain, palpitations, syncope, cough, shortness of breath, wheeze, dyspnea, abdominal pain, nausea/vomiting/diarrhea, urinary retention, dysuria, hematuria, loss of control of bowel or bladder, numbness/tingling, saddle anesthesia, muscle paralysis, or rash. - Related Data Allergies/Adverse Reactions: metoclopramide HCl [From Reglan] Adverse Reaction (Intermediate, Verified 03/18/18 17:14) "FEELS LIKE NO CONTROL OVER BODY-LEGS/HANDS/SPEECH" Penicillins Adverse Reaction (Intermediate, Verified 03/18/18 17:14) NAUSEA/VOMITING prochlorperazine edisylate [From Compazine] Adverse Reaction (Intermediate, Verified 03/18/18 17:14) DIZZINESS,AGITATED,RESTLESS sumatriptan [From Imitrex] Adverse Reaction (Verified 03/18/18 17:14) NAUSEA, VOMITING, DIZZY ivp dye Allergy (Severe, Uncoded 09/22/17 10:28) THROAT SWELLING, DIFFICULTY BREATHING Past Medical History - Social History Smoking Status: Unknown if Ever Smoked Family History: Reviewed & Not Pertinent, Other - Past Medical History Cardiac Medical History: Comment Only: Hx Hypertension - HTN in chart but PT states "NO HTN" Pulmonary Medical History: Reports: Hx Asthma, Hx Bronchitis - 07/31, Hx Pneumonia - x3 IN 2014 Neurological Medical History: Denies: Hx Parkinson's Disease Endocrine Medical History: Reports: Hx Diabetes Mellitus Type 2, Hx Hypothyroidism - Right Thyroidectomy/CA/Goiter Renal/ Medical History: Denies: Hx Peritoneal Dialysis Malignancy Medical History: GI Medical History: Reports: Hx Gastroesophageal Reflux Disease - 7 yrs? takes meds gastroparesis, Hx Irritable Bowel Musculoskeletal Medical History: Reports Hx Arthritis, Reports Hx Fibromyalgia, Reports Hx Musculoskeletal Deformity, Reports Hx Musculoskeletal Trauma, Denies Hx Systemic Lupus Erythematosus Psychiatric Medical History: Reports: Hx Depression - Anxiety, Hx Post Traumatic Stress Disorder Traumatic Medical History: Reports: Hx Fractures - multiple- hip, ankles, left wrist Infectious Medical History: Past Surgical History: Reports: Hx Adenoidectomy, Hx Section - x2, Hx Cholecystectomy, Hx Nose Surgery, Hx Orthopedic Surgery - TKR, right hip elham and plate, Hx Thyroid Surgery - removed half of thyroid, Hx Tonsillectomy, Hx Tubal Ligation - Immunizations Hx Diphtheria, Pertussis, Tetanus Vaccination: Yes Hx Pneumococcal Vaccination: 04/12/16 Review of Systems - Review of Systems -: Yes All other systems reviewed and negative Physical Exam - Vital signs Vitals: Temp Resp BP Pulse Ox 97.7 F 18 119/63 93 07/23/19 13:15 07/23/19 13:15 07/23/19 13:15 07/23/19 13:15 - Notes Notes: PHYSICAL EXAMINATION: accompanied by female nurseshar GENERAL: Well-appearing, well-nourished and in no acute distress. A&Ox4. Answers questions appropriately. HEAD: Atraumatic, normocephalic. Non-tender. No vu sign EYES: Pupils equal round and reactive to light, extraocular movements intact, sclera anicteric, conjunctiva are normal. No raccoon eyes/entrapment ENT: EAC clear b/l. TM's intact b/l without erythema, fluid, or perforation. Nares patent and without discharge. oropharynx clear without exudates. No tonsilar hypertrophy or erythema. Moist mucous membranes. No sinus tenderness. No hemotympanum/CSF discharge. Face: there is a small abrasion left cheek. no hematoma or ecchymosis otherwise. No bony tenderness. No missing/loose teeth. NECK: Normal range of motion, supple without lymphadenopathy. No rigidity. No midline tenderness. Chest: No flail chest. equal rise/fall. Non-tender LUNGS: Breath sounds clear to auscultation bilaterally and equal. No wheezes rales or rhonchi. HEART: Regular rate and rhythm without murmurs, rubs, gallops. ABDOMEN: Soft, nontender, nondistended abdomen. No guarding, no rebound. Normal bowel sounds present. No CVA tenderness bilaterally. No seatbelt sign. Musculoskeletal: Left wrist: + tenderness to the distal wrist and proximal hand. No obvious ecchymosis or deformity. N/V intact distal. Ext's otherwise b/l: FROM to passive/active. Strength 5+/5. No deficits noted. No bony tenderness of extremities. Back: FROM to passive/active. Strength 5+/5. No vertebral point tenderness, stepoffs, or deformities. No other bony tenderness or ecchymosis. Extremities: No cyanosis, clubbing, or edema b/l. Peripheral pulses 2+. Capillary refill less than 2 seconds. NEUROLOGICAL: NIH 0. GCS 15. Cranial nerves grossly intact. Normal speech, normal gait. Normal sensory, motor exams. Reflexes 2+ b/l. LISA's negative. Pronator drift negative. Heel/rosenthal, finger/nose wnl. PSYCH: Normal mood, normal affect. SKIN: Warm, Dry, normal turgor, no rashes or lesions noted. Course - Re-evaluation Re-evalutation: 07/23/19 14:50 Patient is an afebrile, well-hydrated, 59-year-old female who presents to the ED with a fracture to the distal Lt radius. Vitals are acceptable without any significant tachycardia, tachypnea, or hypoxia. PE is otherwise unremarkable fo r any neurovascular compromise, obvious tendon/ligament rupture, open fracture, septic joint. See XR result. Splint applied today. Pt recieved pain meds via EMS. Patient is nontoxic-appearing. No other labs or imaging warranted at this time based on H&P. Conservative measures otherwise for symptoms. Recheck with your PCM in 3-5 days. Call orthopedics Thursday to schedule an appointment for further evaluation and management. Return to the ED with any worsening/concerning symptoms otherwise as reviewed in discharge. Patient is in agreement. - Vital Signs Vital signs: Temp Pulse Resp BP Pulse Ox 97.7 F 60 18 126/66 H 93 07/23/19 13:20 07/23/19 13:20 07/23/19 13:20 07/23/19 13:20 07/23/19 13:20 Procedures - Immobilization Left Wrist Pre-Proc Neuro Vasc Exam: Normal Immobilizer type: Volar splint Performed by: PCT Post-Proc Neuro Vasc Exam: Normal, Unchanged from pre-exam Discharge - Discharge Clinical Impression: Fracture of left distal radius Qualifiers: Encounter type: initial encounter Fracture type: closed Fracture morphology: unspecified fracture morphology Qualified Code(s): S52.502A - Unspecified fracture of the lower end of left radius, initial encounter for closed fracture Condition: Stable Disposition: HOME, SELF-CARE Additional Instructions: Rest, Ice, Compression, Elevation Use splint as directed Tylenol/ibuprofen as needed F/u with your PCP in 3-5 days for a recheck Call orthopedics tomorrow to schedule an appointment for further evaluation and management Return to the ED with any worsening symptoms and/or development of fever, headache, chest pain, palpitations, syncope, shortness of breath, trouble breathing, abdominal pain, n/v/d, muscle weakness/paralysis, numbness/tingling, swelling, redness, or other worsening symptoms that are concerning to you. Prescriptions: Hydrocodone/Acetaminophen [[place] 5-325 mg Tablet] 1 tab PO TID #12 tablet Forms: Elevated Blood Pressure Referrals: LEYDI WELLINGTON MD [Primary Care Provider] - Follow up as needed GABY MONTGOMERY JR, DO [ACTIVE PROVISIONAL STAFF] - Follow up in 3-5 days
--- NOTE | 2019-07-23 14:26 | RADIOLOGY REPORT (SQ) ---
EXAM DESCRIPTION: FOREARM LEFT COMPLETED DATE/TIME: 07/23/2019 2:02 pm REASON FOR STUDY: pain s/p foosh injury COMPARISON: None. NUMBER OF VIEWS: Two views. TECHNIQUE: Two radiographic images acquired of the left forearm, including elbow and wrist in at [address] one projection. LIMITATIONS: None. FINDINGS: MINERALIZATION: Osteopenia. BONES: Nondisplaced fracture of the distal radial metaphysis. SOFT TISSUES: No obvious swelling or foreign body. OTHER: No other significant finding. IMPRESSION: Nondisplaced fracture distal radius. TECHNICAL DOCUMENTATION: JOB ID: [id number] [employer]- All Rights Reserved Reading location - IP/workstation name: [email or web address]
--- NOTE | 2019-07-23 14:27 | RADIOLOGY REPORT (SQ) ---
EXAM DESCRIPTION: HAND LEFT 3 VIEWS COMPLETED DATE/TIME: 07/23/2019 2:02 pm REASON FOR STUDY: pain s/p foosh injury COMPARISON: None. EXAM PARAMETERS: NUMBER OF VIEWS: Three views. TECHNIQUE: AP, lateral and oblique radiographic images acquired of the left hand. LIMITATIONS: None. FINDINGS: MINERALIZATION: Osteopenia. BONES: Comminuted fracture distal radial metaphysis with mild impaction. JOINTS: No effusions. SOFT TISSUES: No soft tissue swelling. No foreign body. OTHER: No other significant finding. IMPRESSION: Fracture of the distal radius. TECHNICAL DOCUMENTATION: JOB ID: [id number] [employer]- All Rights Reserved Reading location - IP/workstation name: [email or web address]
[2019-07-23 15:16] VITALS: BP 123/48
== END 2019-07-23 15:17 | disposition home or self-care (01) ==
LOC: ER 13:15
PROC: 2W3DX1Z Immobilization of Left Lower Arm using Splint (ICD-10-PCS; principal; 2019-07-23)
DX: S52.502A Unspecified fracture of the lower end of left radius, initial encounter for closed fracture (principal); M25.532 Pain in left wrist; M79.642 Pain in left hand; W19.XXXA Unspecified fall, initial encounter; I10 Essential (primary) hypertension; E11.9 Type 2 diabetes mellitus without complications; J44.9 Chronic obstructive pulmonary disease, unspecified
CPT/HCPCS: 99283

== ENCOUNTER 2020-08-28 00:07 | Emergency (ER) | payer MEDICARE, MEDICAID ==
[2020-08-28] MEDS ORDERED: ONDANSETRON 4 MG TAB.RAPDIS PO ONE (01:27)
[2020-08-28] MEDS: ACETAMINOPHEN 325 MG TABLET PO ONE ×2 (07:30→08:20)
[2020-08-28] MEDS ORDERED: ONDANSETRON HCL INJ/PF 4 MG/2 ML SDV IV ONE (08:11)
--- NOTE | 2020-08-28 08:29 | ER Document Report ---
ED General - General Chief Complaint: Fever Stated Complaint: FEVER Time Seen by Provider: 08/28/20 08:25 Primary Care Provider: LEYDI WELLINGTON MD [Primary Care Provider] - Follow up in 1 week Notes: Patient is a 60-year-old female presents emergency department for nausea, vomiting, and diarrhea that started about 4 days ago. Patient also reports that she had a fever. Patient tested positive for COVID-19 over at [facility] when she started to have her symptoms. Patient states that she continues to vo clarence. Also states that the Zofran that was given to her in triage helped a little bit, but she is still nauseous. Patient has a history of type II diabetes. Denies any shortness of breath or difficulty breathing. Denies any cough. TRAVEL OUTSIDE OF THE [place] IN LAST 30 DAYS: No - Related Data Allergies/Adverse Reactions: metoclopramide HCl [From Reglan] Adverse Reaction (Intermediate, Verified 03/18/18 17:14) "FEELS LIKE NO CONTROL OVER BODY-LEGS/HANDS/SPEECH" Penicillins Adverse Reaction (Intermediate, Verified 03/18/18 17:14) NAUSEA/VOMITING prochlorperazine edisylate [From Compazine] Adverse Reaction (Intermediate, Ve rified 03/18/18 17:14) DIZZINESS,AGITATED,RESTLESS sumatriptan [From Imitrex] Adverse Reaction (Verified 03/18/18 17:14) NAUSEA, VOMITING, DIZZY ivp dye Allergy (Severe, Uncoded 09/22/17 10:28) THROAT SWELLING, DIFFICULTY BREATHING Past Medical History - Social History Smoking Status: Never Smoker Chew tobacco use (# tins/day): No Frequency of alcohol use: None Drug Abuse: Bath salts Family History: Reviewed & Not Pertinent, Other Patient has homicidal ideation: No - Past Medical History Cardiac Medical History: Comment Only: Hx Hypertension - HTN in chart but PT states "NO HTN" Pulmonary Medical History: Reports: Hx Asthma, Hx Bronchitis - 07/31, Hx Pneumonia - x3 IN 2015 Neurological Medical History: Denies: Hx Parkinson's Disease Endocrine Medical History: Reports: Hx Diabetes Mellitus Type 2, Hx Hypothyroidism - Right Thyroidectomy/CA/Goiter Renal/ Medical History: Denies: Hx Peritoneal Dialysis Malignancy Medical History: GI Medical History: Reports: Hx Gastroesophageal Reflux Disease - 7 yrs? takes meds gastroparesis, Hx Irritable Bowel Musculoskeletal Medical History: Reports Hx Arthritis, Reports Hx Fibromyalgia, Reports Hx Musculoskeletal Deformity, Reports Hx Musculoskeletal Trauma, Denies Hx Systemic Lupus Erythematosus Psychiatric Medical History: Reports: Hx Depression - Anxiety, Hx Post Traumatic Stress Disorder Traumatic Medical History: Reports: Hx Fractures - multiple- hip, ankles, left wrist Infectious Medical History: Past Surgical History: Reports: Hx Adenoidectomy, Hx Section - x2, Hx Cholecystectomy, Hx Nose Surgery, Hx Orthopedic Surgery - TKR, right hip elham and plate, Hx Thyroid Surgery - removed half of thyroid, Hx Tonsillectomy, Hx Tubal Ligation - Immunizations Hx Diphtheria, Pertussis, Tetanus Vaccination: Yes Hx Pneumococcal Vaccination: 04/12/16 Review of Systems - Review of Systems Notes: REVIEW OF SYSTEMS: CONSTITUTIONAL : Denies recent illness. Denies recent unintentional weight loss. See HPI. EENT: Denies eye, ear, throat, or mouth pain, discharge, or symptoms. Denies nasal or sinus congestion. CARDIOVASCULAR: Denies chest pain. RESPIRATORY: Denies shortness of breath, cough, congestion, difficulty breathing, or wheezing. GASTROINTESTINAL: See HPI. GENITOURINARY: Denies difficulty urinating, burning, blood in urine, urgency or frequency. MUSCULOSKELETAL: Denies neck and back pain. Denies joint pain or swelling. SKIN: Denies rash, itchiness, or lesions HEMATOLOGIC : Denies easy bruising or bleeding. LYMPHATIC: Denies swollen, painful, enlarged glands. NEUROLOGICAL: Denies no numbness or tingling denies weakness. Denies headache. Denies altered mental status. Denies alteration in speech. PSYCHIATRIC: Denies stress, anxiety, alteration in sleep patterns, or depression. All other systems reviewed and negative. Physical Exam - Vital signs Vitals: Temp Pulse Resp BP Pulse Ox 98.3 F 124 H 18 127/82 H 94 08/28/20 00:32 08/28/20 00:32 08/28/20 00:32 08/28/20 00:08/28/20 00:32 - Notes Notes: PHYSICAL EXAMINATION: GENERAL: Appears well, healthy, well-nourished, no acute distress. HEAD: Normocephalic, atraumatic. EYES: PERRL, conjunctiva normal, all extraocular movements intact, sclera nonicteric ENT: Moist mucous membranes. NECK: Supple, no noticeable swelling, redness, rash. Normal range of motion. LUNGS: Equal breath sounds bilaterally and clear to auscultation. No wheezes rales or rhonchi. CARDIOVASCULAR: S1-S2, regular rate, regular rhythm. Radial pulses 2+, normal. ABDOMEN: Normoactive bowel sounds. Soft, slightly tender generalized abdomen, no guarding, no rebound tenderness, and no masses palpated. No EXTREMITIES: Normal strength and range of motion, no pitting or edema. No cyanosis. NEUROLOGICAL: Moves all extremities upon command. Strength 5/5 in all extremities. PSYCH: Normal mood, normal affect. SKIN: Warm, dry. No rash, lesions, ulcerations noted. Normal skin turgor. Course - Re-evaluation Re-evalutation: 08/28/20 Hematology is unremarkable. Chemistry are also unremarkable. Initial troponin was 0.020. This was repeated in the second troponin was also indeterminate. Urinalysis shows a large amount of blood in her urine with 7 WBCs. There are nitrates also in her urine. There is also 3+ bacteria. She received a dose of ciprofloxacin. We will send her home on ciprofloxacin. Discussed with the patient that since she does have COVID-19 and a urinary tract infection, this is why she is not any better. She will follow up with her primary care provider after quarantine. No evidence of sepsis. Follow-up precautions were given. Verbal discharge instructions were given to the patient. They verbalized understanding. They are stable for discharge. - Vital Signs Vital signs: Temp Pulse Resp BP Pulse Ox 98.3 F 75 18 136/63 H 98 08/28/20 15:01 08/28/20 06:56 08/28/20 15:01 08/28/20 15:01 08/28/20 14:00 - Laboratory Results Result Diagrams: 08/28/20 08:04 08/28/20 08:04 Laboratory Results Interpreted: 08/28/20 08/28/20 08/28/20 08:04 08:04 10:15 RDW 14.1 H Plt Count 91 L Chloride 108 H Glucose 130 H AST 39 H Total Protein 6.2 L Urine Protein 100 H Urine Ketones 80 H Urine Blood LARGE H Urine Nitrite POSITIVE H Urine Urobilinogen 2.0 H Critical Laboratory Results Reviewed: No Critical Results - Radiology Results Critical Radiology Results Reviewed: No Critical Results Discharge - Discharge Clinical Impression: COVID-19 Nausea & vomiting Qualifiers: Vomiting type: unspecified Vomiting Intractability: unspecified Qualified Code(s): R11.2 - Nausea with vomiting, unspecified Diarrhea Qualifiers: Diarrhea type: unspecified type Qualified Code(s): R19.7 - Diarrhea, unspecified Urinary tract infection Qualifiers: Urinary tract infection type: acute cystitis Hematuria presence: without hematuria Qualified Code(s): N30.00 - Acute cystitis without hematuria Condition: Stable Disposition: HOME, SELF-CARE Additional Instructions: You were seen today in the emergency department for nausea, vomiting, and diarrhea due to COVID-19. Take the Phenergan as prescribed. When you take the Phenergan, also take 25 mg of Benadryl. Follow-up with your primary care provider after quarantine. Your urine shows findings consistent with a urinary tract infection. Please take all the antibiotics as directed even if your symptoms have improved. Please follow-up with your primary care physician as needed. Return to e mergency room if you develop fever >101F, persistent vomiting, become lethargic, have severe pain in your sides, or any other symptoms that are concerning to you. Prescriptions: Diphenhydramine HCl [Benadryl 25 mg Capsule] 25 mg PO Q6HP PRN #25 capsule PRN Reason: Ciprofloxacin HCl [Cipro 500 mg Tablet] 500 mg PO BID #20 tablet Promethazine HCl [Phenergan 25 mg Tablet] 1 tab PO Q6H PRN #25 tablet PRN Reason: Referrals: LEYDI WELLINGTON MD [Primary Care Provider] - Follow up in 1 week
--- NOTE | 2020-08-28 08:30 | RADIOLOGY REPORT (SQ) ---
EXAM DESCRIPTION: CHEST SINGLE VIEW IMAGES COMPLETED DATE/TIME: 08/28/2020 7:54 am REASON FOR STUDY: sob/fever COMPARISON: 03/18/2018 EXAM PARAMETERS: NUMBER OF VIEWS: One view. TECHNIQUE: Single frontal radiographic view of the chest acquired. RADIATION DOSE: NA LIMITATIONS: None. FINDINGS: LUNGS AND PLEURA: Low lung volumes with resultant bronchovascular crowding. No focal cons olidation, pleural effusion, or pneumothorax demonstrated. MEDIASTINUM AND HILAR STRUCTURES: No masses. Contour normal. HEART AND VASCULAR STRUCTURES: Heart normal in size. Normal vasculature. BONES: No acute findings. HARDWARE: None in the chest. OTHER: No other significant finding. IMPRESSION: Low lung volumes. No discrete radiographic evidence of acute cardiopulmonary abnormalit y. TECHNICAL DOCUMENTATION: JOB ID: [id number] 2010 [employer]- All Rights Reserved Reading location - IP/workstation name: [email or web address]
[2020-08-28 08:33] LABS: ABSOLUTE LYMPHOCYTES (AUTO) 1.2 10^3/uL (0.5-4.7); ABSOLUTE MONOCYTES (AUTO) 0.3 10^3/uL (0.1-1.4); ABSOLUTE NEUT (AUTO) 2.9 10^3/uL (1.7-8.2); BASOPHILS % (AUTO) 0.4 % (0-2); EOSINOPHILS % (AUTO) 0.1 % (0-6); HEMATOCRIT 43.2 % (36.0-47.0); HEMOGLOBIN 14.7 g/dL (12.0-15.5); MEAN CORPUSCULAR HEMOGLOBIN 30.6 pg (27.0-33.4); MEAN CORPUSCULAR HGB CONC 34.1 g/dL (32.0-36.0); MEAN CORPUSCULAR VOLUME 90 fl (80-97); MONOCYTES % (AUTO) 6.4 % (3-13); RED BLOOD COUNT 4.81 10^6/uL (3.72-5.28); RED CELL DISTRIBUTION WIDTH 14.1 % (11.5-14.0); SEGMENTED NEUTROPHILS % (AUTO) 66.1 % (42-78); TOTAL CELLS COUNTED % (AUTO) 100 %; WHITE BLOOD COUNT 4.5 10^3/uL (4.0-10.5)
[2020-08-28 08:40] LABS: ALBUMIN 3.6 g/dL (3.5-5.0); ALKALINE PHOSPHATASE 42 U/L (38-126); ANION GAP 11 (5-19); ASPARTATE AMINO TRANSFERASE 39 U/L (14-36); BILIRUBIN,DIRECT 0.3 mg/dL (0.0-0.4); BILIRUBIN,TOTAL 0.6 mg/dL (0.2-1.3); BLOOD UREA NITROGEN 17 mg/dL (7-20); CALCIUM 8.6 mg/dL (8.4-10.2); CARBON DIOXIDE 23 mmol/L (22-30); CHLORIDE 108 mmol/L (98-107); CREATINE KINASE 40 U/L (30-135); GLUCOSE 130 mg/dL (75-110); POTASSIUM 3.7 mmol/L (3.6-5.0); TOTAL PROTEIN 6.2 g/dL (6.3-8.2)
[2020-08-28 08:57] LABS: PLATELET COUNT 91 10^3/uL (150-450)
[2020-08-28 09:12] LABS: CREATINE KINASE MB 0.53 ng/mL (<4.55); TROPONIN I 0.02 ng/mL
[2020-08-28] MEDS ORDERED: NORMAL SALINE 1000 ML 1,000 ML IV ONE (09:22)
[2020-08-28] MEDS ORDERED: PROMETHAZINE HCL INJ 25 MG/1 ML VIAL IV ONE (09:22)
--- NOTE | 2020-08-28 09:53 | EKG REPORT ---
SEVERITY:- ABNORMAL ECG - SINUS RHYTHM PROBABLE LEFT ATRIAL ABNORMALITY PROBABLE INFERIOR INFARCT, AGE INDETERMINATE CONSIDER ANTERIOR INFARCT : Confirmed by: Josefina Molina MD 28-Aug-2020 09:52:02
[2020-08-28] MEDS ORDERED: ACETAMINOPHEN 325 MG TABLET PO ONE (10:07)
[2020-08-28 10:38] LABS: APPEARANCE,URINE SLIGHTLY-CLOUDY; BILIRUBIN,URINE NEGATIVE (NEGATIVE); GLUCOSE, URINE NEGATIVE (NEGATIVE); KETONES,URINE 80 mg/dL (NEGATIVE); LEUKOCYTE ESTERASE,URINE NEGATIVE (NEGATIVE); NITRITE,URINE POSITIVE (NEGATIVE); PROTEIN,URINE 100 mg/dL (NEGATIVE); URINE SPECIFIC GRAVITY 1.026
[2020-08-28 10:43] LABS: COLOR,URINE DARK YELLOW
[2020-08-28] MEDS ORDERED: CIPROFLOXACIN HCL 500 MG TABLET PO ONE (11:24)
[2020-08-28] MEDS ORDERED: DIPHENHYDRAMINE HCL 50 MG/ML VIAL IV ONE (11:32)
[2020-08-28 15:15] VITALS: BP 136/63
== END 2020-08-28 15:15 | disposition home or self-care (01) ==
LOC: ER 00:07
DX: U07.1 COVID-19 (principal); N39.0 Urinary tract infection, site not specified; R11.2 Nausea with vomiting, unspecified; R19.7 Diarrhea, unspecified; R50.9 Fever, unspecified; E11.9 Type 2 diabetes mellitus without complications; Z90.49 Acquired absence of other specified parts of digestive tract
CPT/HCPCS: 93005; 99285; 96361; 96374; 96375; 36415; 87086; 82553; 82550; 85025; 87088; 80053; 81001; 84484; 87186; 71045; 93010; A9270 ×3; J1200; J2550; J2405; J7030; S0119